=== PATIENT | male | born 1950 | race Caucasian/White ===

== ENCOUNTER 2019-05-12 11:15 | Outpatient (REF) | payer MEDICARE, MEDICAID, SELFPAY ==
[2019-05-12 21:57] LABS: Anion Gap 6.6 mmol/L (3-11); BUN 9 mg/dL (7-18); CO2 30.4 mmol/L (21.0-32.0); CREATININE 1.01 mg/dL (0.70-1.30); Calculated LDL 136 mg/dL; Chloride 104 mmol/L (98-107); Cholesterol 217 mg/dL (50-200); Glucose 95 mg/dL (70-100); HDL Cholesterol 47 mg/dL (40-60); Potassium 3.9 mmol/L (3.5-5.1); Sodium 141 mmol/L (136-145); Triglyceride 171 mg/dL (30-150)
[2019-05-12 22:12] LABS: Uric Acid 4.6 mg/dL (3.5-7.2)
== END 2019-05-12 11:35 ==
LOC: NCHCN 11:15
PROVIDERS: PCP Internal Medicine; Visit Provider Internal Medicine
DX: M10.9 Gout, unspecified (principal); E66.9 Obesity, unspecified; Z13.6 Encounter for screening for cardiovascular disorders
CPT/HCPCS: 80048; 80061; 84550

== ENCOUNTER 2020-05-07 09:40 | Outpatient (REF) | payer MEDICARE, MEDICAID, SELFPAY ==
[2020-05-07 21:43] LABS: Hemoglobin A1C 5.6 % (<5.7)
[2020-05-07 21:52] LABS: ALT 37 U/L (16-63); AST 29 U/L (15-37); Albumin 3.9 g/dL (3.4-5.0); Alkaline Phosphatase 77 U/L (46-116); Anion Gap 9.2 mmol/L (3-11); BUN 8 mg/dL (7-18); Bilirubin, Total 0.4 mg/dL (0.2-1.0); CO2 28.8 mmol/L (21.0-32.0); CREATININE 0.95 mg/dL (0.70-1.30); Calcium 9.2 mg/dL (8.5-10.1); Chloride 104 mmol/L (98-107); Glucose 103 mg/dL (74-106); Potassium 3.9 mmol/L (3.5-5.1); Sodium 142 mmol/L (136-145); Total Protein 6.9 g/dL (6.4-8.2); Uric Acid 4.8 mg/dL (3.5-7.2)
[2020-05-07 22:11] LABS: Calculated LDL 145 mg/dL (<100); Cholesterol 248 mg/dL (<200); HDL Cholesterol 74 mg/dL (40-60); Triglyceride 146 mg/dL (<150)
== END 2020-05-07 10:00 ==
LOC: NCHCN 09:40
PROVIDERS: PCP Internal Medicine; Visit Provider Internal Medicine
DX: E78.5 Hyperlipidemia, unspecified (principal); R03.0 Elevated blood-pressure reading, without diagnosis of hypertension; R73.03 Prediabetes; M10.9 Gout, unspecified
CPT/HCPCS: 80053; 80061; 83036; 84550

== ENCOUNTER 2020-08-19 13:44 | Outpatient (REF) | payer MEDICARE, MEDICAID, SELFPAY ==
[2020-08-19 19:41] LABS: HCT 43.1 % (40.0-50.0); HGB 14.7 g/dL (13.5-17.5); MCH 32.4 pg (27.0-33.0); MCHC 34.1 % (32.0-36.0); MCV 94.9 fL (80-95); MPV 10.4 fL (8.0-11.0); Platelet Count 204 10^3/uL (130-400); RBC 4.54 10^6/uL (4.36-5.78); RDW-SD 48.6 fL; WBC 12.23 10^3/uL (4.4-10.8)
[2020-08-19 20:02] LABS: Calculated LDL 59 mg/dL (<100); Cholesterol 172 mg/dL (<200); HDL Cholesterol 85 mg/dL (40-60); Triglyceride 144 mg/dL (<150)
== END 2020-08-19 14:04 ==
LOC: NCHCN 13:44
PROVIDERS: PCP Internal Medicine; Visit Provider Internal Medicine
DX: F10.20 Alcohol dependence, uncomplicated (principal); I10 Essential (primary) hypertension
CPT/HCPCS: 80061; 85027

== ENCOUNTER 2021-12-11 18:38 | Outpatient (REF) | payer MEDICARE, MEDICAID, SELFPAY ==
[2021-12-11 14:32] LABS: Abs Immature Grans 0.02 10^3/uL (0.0-0.06); Absolute Basophil Count 0.09 10^3/uL (0.0-0.2); Absolute Eosinophil Count 0.23 10^3/uL (0.0-0.7); Absolute Monocyte Count 0.71 10^3/uL (0.1-0.8); Absolute Neutrophil Count 3.93 10^3/uL (1.2-6.7); Eosinophils % 2.5; HCT 45.5 % (40.0-50.0); HGB 15.2 g/dL (13.5-17.5); Immature Grans % 0.2; Lymphocytes % 46.3; MCH 31.7 pg (27.0-33.0); MCHC 33.4 % (32.0-36.0); MCV 95 fL (80-95); MPV 9.7 fL (8.0-11.0); Monocytes % 7.7; Neutrophils % 42.3; Platelet Count 222 10^3/uL (130-400); RDW 14.4 % (11.8-14.1); RDW-SD 50.2 fL; WBC 9.28 10^3/uL (4.4-10.8)
[2021-12-11 14:45] LABS: ALT 55 U/L (16-63); AST 30 U/L (15-37); Alkaline Phosphatase 73 U/L (46-116); Anion Gap 9.9 mmol/L (3-11); BUN 10 mg/dL (7-18); Bilirubin, Total 0.6 mg/dL (0.2-1.0); CO2 28.1 mmol/L (21.0-32.0); Calcium 8.9 mg/dL (8.5-10.1); Calculated LDL 122 mg/dL (<100); Chloride 103 mmol/L (98-107); Cholesterol 243 mg/dL (<200); Glucose 134 mg/dL (74-106); HDL Cholesterol 63 mg/dL (40-60); Potassium 3.8 mmol/L (3.5-5.1); Sodium 141 mmol/L (136-145); Total Protein 7.2 g/dL (6.4-8.2); Triglyceride 294 mg/dL (<150)
[2021-12-11 14:50] LABS: Hemoglobin A1C 6.9 % (<5.7)
== END 2021-12-11 18:39 | disposition home or self-care (01) ==
LOC: NCHCN 18:38
PROVIDERS: PCP Internal Medicine; Visit Provider Internal Medicine
DX: E78.5 Hyperlipidemia, unspecified (principal); R73.03 Prediabetes; I10 Essential (primary) hypertension
CPT/HCPCS: 80053; 80061; 83036; 85025

== ENCOUNTER 2022-02-27 16:29 | Outpatient (REF) | payer MEDICARE, MEDICAID, SELFPAY ==
[2022-02-27 16:53] LABS: Hemoglobin A1C 5.7 % (<5.7)
[2022-02-27 16:57] LABS: Anion Gap 8.2 mmol/L (3-11); BUN 9 mg/dL (7-18); CO2 28.8 mmol/L (21.0-32.0); CREATININE 0.9 mg/dL (0.70-1.30); Calcium 9.2 mg/dL (8.5-10.1); Calculated LDL 69 mg/dL (<100); Chloride 104 mmol/L (98-107); Cholesterol 169 mg/dL (<200); Glucose 112 mg/dL (74-106); HDL Cholesterol 61 mg/dL (40-60); Potassium 4.1 mmol/L (3.5-5.1); Sodium 141 mmol/L (136-145); Triglyceride 199 mg/dL (<150)
== END 2022-02-27 16:30 | disposition home or self-care (01) ==
LOC: NCHCN 16:29
PROVIDERS: PCP Internal Medicine; Visit Provider Internal Medicine
DX: E11.9 Type 2 diabetes mellitus without complications (principal); I10 Essential (primary) hypertension; E78.5 Hyperlipidemia, unspecified
CPT/HCPCS: 80048; 80061; 83036

== ENCOUNTER 2022-03-05 17:05 | Outpatient (REF) | payer MEDICARE, MEDICAID, SELFPAY ==
[2022-03-05 15:04] LABS: COMMENT (LAB VIEW ONLY) 47.65 mg/dL; Microalb ug/mg Crea 4.6 ug/mg Cr
== END 2022-03-05 17:06 | disposition home or self-care (01) ==
LOC: NCHCN 17:05
PROVIDERS: PCP Internal Medicine; Visit Provider Nurse Practitioner Family
DX: E11.9 Type 2 diabetes mellitus without complications (principal); E78.5 Hyperlipidemia, unspecified; I10 Essential (primary) hypertension
CPT/HCPCS: 82043; 82570

== ENCOUNTER 2022-09-18 13:33 | Outpatient (REF) | payer MEDICARE, MEDICAID, SELFPAY ==
[2022-09-18 14:27] LABS: HCT 44.7 % (40.0-50.0); HGB 15.1 g/dL (13.5-17.5); MCH 31.9 pg (27.0-33.0); MCHC 33.8 % (32.0-36.0); MCV 94 fL (80-95); MPV 10.2 fL (8.0-11.0); Platelet Count 204 10^3/uL (130-400); RBC 4.74 10^6/uL (4.36-5.78); RDW 13.8 % (11.8-14.1); RDW-SD 47.7 fL; WBC 9.24 10^3/uL (4.4-10.8)
[2022-09-18 14:36] LABS: ALT 33 U/L (16-63); AST 26 U/L (15-37); Albumin 3.8 g/dL (3.4-5.0); Alkaline Phosphatase 72 U/L (46-116); BUN 11 mg/dL (7-18); Bilirubin, Total 0.4 mg/dL (0.2-1.0); CREATININE 1.1 mg/dL (0.70-1.30); Calcium 9.1 mg/dL (8.5-10.1); Chloride 104 mmol/L (98-107); Estimated GFR 71.32 (mL/min/1.73m2); Glucose 143 mg/dL (74-106); Potassium 3.8 mmol/L (3.5-5.1); Sodium 142 mmol/L (136-145); Total Protein 6.9 g/dL (6.4-8.2)
== END 2022-09-18 13:34 | disposition home or self-care (01) ==
LOC: NCHCN 13:33
PROVIDERS: PCP Internal Medicine; Visit Provider Internal Medicine
DX: K76.0 Fatty (change of) liver, not elsewhere classified (principal); I10 Essential (primary) hypertension; F10.20 Alcohol dependence, uncomplicated; Z00.00 Encounter for general adult medical examination without abnormal findings
CPT/HCPCS: 80053; 85027

== ENCOUNTER 2022-10-29 15:56 | Outpatient (REF) | payer MEDICARE, MEDICAID, SELFPAY ==
[2022-10-29 21:27] LABS: Anion Gap 7.3 mmol/L (3-11); BUN 22 mg/dL (7-18); CO2 26.7 mmol/L (21.0-32.0); CREATININE 1.2 mg/dL (0.70-1.30); Calcium 9.4 mg/dL (8.5-10.1); Chloride 104 mmol/L (98-107); Estimated GFR 64.25 (mL/min/1.73m2); Glucose 114 mg/dL (74-106); Potassium 4.2 mmol/L (3.5-5.1); Sodium 138 mmol/L (136-145)
== END 2022-10-29 15:57 | disposition home or self-care (01) ==
LOC: NCHCN 15:56
PROVIDERS: PCP Internal Medicine; Visit Provider Internal Medicine
DX: I50.9 Heart failure, unspecified (principal); E11.9 Type 2 diabetes mellitus without complications; I10 Essential (primary) hypertension
CPT/HCPCS: 80048

== ENCOUNTER 2022-12-07 14:58 | Outpatient (REF) | payer MEDICARE, MEDICAID, SELFPAY ==
[2022-12-07 14:52] LABS: Anion Gap 7.6 mmol/L (3-11); BUN 14 mg/dL (7-18); CO2 31.4 mmol/L (21.0-32.0); Calcium 9.6 mg/dL (8.5-10.1); Chloride 102 mmol/L (98-107); Estimated GFR 79.47 (mL/min/1.73m2); Glucose 94 mg/dL (74-106); Sodium 141 mmol/L (136-145)
== END 2022-12-07 14:59 | disposition home or self-care (01) ==
LOC: NCHCN 14:58
PROVIDERS: PCP Internal Medicine; Visit Provider Internal Medicine
DX: I50.9 Heart failure, unspecified (principal)
CPT/HCPCS: 80048

== ENCOUNTER 2023-03-22 14:04 | Outpatient (REF) | payer MEDICARE, MEDICAID, SELFPAY ==
[2023-03-22 15:38] LABS: COMMENT (LAB VIEW ONLY) 108.34 mg/dL; Microalb ug/mg Crea 15.5 ug/mg Cr
== END 2023-03-22 14:05 | disposition home or self-care (01) ==
LOC: NCHCN 14:04
PROVIDERS: PCP Internal Medicine; Visit Provider Internal Medicine
DX: E11.9 Type 2 diabetes mellitus without complications (principal)
CPT/HCPCS: 82043; 82570

== ENCOUNTER 2023-09-15 11:14 | Outpatient (REF) | payer MEDICARE, MEDICAID, SELFPAY ==
[2023-09-15 15:46] LABS: HCT 42.1 % (40.0-50.0); HGB 14.2 g/dL (13.5-17.5); MCHC 33.7 % (32.0-36.0); MCV 95 fL (80-95); MPV 9.3 fL (8.0-11.0); Platelet Count 245 10^3/uL (130-400); RBC 4.44 10^6/uL (4.36-5.78); RDW 13.3 % (11.8-14.1); RDW-SD 46.5 fL; WBC 9.35 10^3/uL (4.4-10.8)
[2023-09-15 15:57] LABS: ALT 39 U/L (16-63); AST 31 U/L (15-37); Albumin 3.6 g/dL (3.4-5.0); Alkaline Phosphatase 72 U/L (46-116); Anion Gap 8.7 mmol/L (3-11); BUN 12 mg/dL (7-18); Bilirubin, Total 0.3 mg/dL (0.2-1.0); CO2 27.3 mmol/L (21.0-32.0); CREATININE 0.8 mg/dL (0.70-1.30); Calcium 9.5 mg/dL (8.5-10.1); Calculated LDL 73 mg/dL (<100); Chloride 106 mmol/L (98-107); Cholesterol 182 mg/dL (<200); Estimated GFR 93.45 (mL/min/1.73m2); Glucose 88 mg/dL (74-106); HDL Cholesterol 61 mg/dL (40-60); Potassium 4.2 mmol/L (3.5-5.1); Sodium 142 mmol/L (136-145); Total Protein 7.1 g/dL (6.4-8.2); Triglyceride 241 mg/dL (<150)
[2023-09-15 16:09] LABS: Uric Acid 4.4 mg/dL (3.5-7.2)
[2023-09-15 16:24] LABS: Hemoglobin A1C 5.6 % (<5.7)
== END 2023-09-15 11:15 | disposition home or self-care (01) ==
LOC: NCHCN 11:14
PROVIDERS: PCP Internal Medicine; Visit Provider Internal Medicine
DX: I10 Essential (primary) hypertension (principal); E78.5 Hyperlipidemia, unspecified; E11.9 Type 2 diabetes mellitus without complications; M10.9 Gout, unspecified
CPT/HCPCS: 80053; 80061; 85027; 83036; 84550

== ENCOUNTER 2024-03-20 18:15 | Outpatient (REF) | payer MEDICARE, MEDICAID, SELFPAY ==
[2024-03-20 18:51] LABS: COMMENT (LAB VIEW ONLY) 245.68 mg/dL; Microalb ug/mg Crea 9.8 ug/mg Cr
== END 2024-03-20 18:16 | disposition home or self-care (01) ==
LOC: NCHCN 18:15
PROVIDERS: PCP Internal Medicine; Visit Provider Internal Medicine
DX: E11.9 Type 2 diabetes mellitus without complications (principal)
CPT/HCPCS: 82043; 82570

== ENCOUNTER 2024-09-13 10:28 | Outpatient (REF) | payer MEDICARE, MEDICAID, SELFPAY ==
--- OUTSIDE RECORDS SUMMARY | 2024-09-13 10:29 | XMS_ITS | Encounter Summary ---
Author Organization [facility] [place] [address] Care Team Providers Care Cost Recorder Name Role Phone Unavailable Primary Care Provider Unavailabl e Encounter Details Date Type Department Care Team (Late st Contact Info) Description 07/20/2024 Interpretation Only in [facility] [address] [place] [address] Daniel Panda MD [address] [place] [address] Social History Tobacco Use Types Packs/Day Years Used Date Smoking Tobacco: Never Assessed Sex and Gender Information Value Date Recorded Sex Assigned at Not on file Gender Identity Not on file Sexual Orientation Not on file documented as of this encounter Plan of Treatment Not on file documented as of this encounter Visit Diagnoses Not on filedocumented in this encounter
--- OUTSIDE RECORDS SUMMARY | 2024-09-13 10:29 | XMS_ITS | Encounter Summary ---
Author Organization [facility] [place] [address] Care Team Providers Care Gaming Pit Boss Name Role Phone Unavailable Primary Care Provider Unavailabl e Encounter Details Date Type Department Care Team (Late st Contact Info) Description 06/12/2024 Interpretation Only [facility] in [facility] [address] [place] [address] Daniel Panda MD [address] [place] [address] Social History Tobacco Use Types Packs/Day Years Used Date Smoking Tobacco: Never Assessed Sex and Gender Information Value Date Recorded Sex Assigned at Not on file Gender Identity Not on file Sexual Orientation Not on file documented as of this encounter Plan of Treatment Not on file documented as of this encounter Procedures Procedure Name Priority Date/Time Associated Diagnosis Comments XR SHOULDER RIGHT Routine 06/12/2024 11: 57 AM EDT documented in this encounter Results * XR Shoulder Right (Generic) (06/12/2024 11:57 AM EDT) PT CLASS O RAD ADMITDTTM [id number] RAD PT RAD INFO [id number]^SHELBI^J OHN^C RAD EXAM DESC XRSHDR^XR SHOULDER 2V OR MORE RT^RIS RAD WORKSTATION ID [id number] RAD Anatomical Region Laterality Modality Shoulder Right Radiographic Elsie ging Impressions 06/12/2024 2:40 PM EDT 1. ??No acute osseous abnormality. 2. ??Moderate bilateral glenohumeral osteoarthritis, right greater than left. 3. ??Superior subluxation of the bilateral humeri, right greater left, suggesting underlying chronic rotator cuff tear injury. Thank you for letting us participate in the care of this patient. ??If you are a health care provider and have any questions regarding this report, please contact the number below. ??For patients who have questions please contact the health hospice care sales consultant that requested your imaging first. ? Narrative 06/12/2024 2:40 PM EDT EXAMINATION: * ??XR SHOULDER 2V OR MORE LT * ??XR SHOULDER 2V OR MORE RT CLINICAL HISTORY: ??Reason for Extrem: ??Pain ??Add'l Info: TECHNIQUE: 2 views of the bilateral shoulders were obtained. COMPARISON: There is no similar prior examination provided for comparison. FINDINGS: There is no fracture. ??There is no dislocation. There is moderate bilateral glenohumeral and acromioclavicular joint space narrowing associated with subchondral sclerosis and juxta-articular osteophyte formation. ??There is superior subluxation of the humerus as compared to the glenoid, right greater than left. ??The glenohumeral interval on the right is 6 mm and is 8 to 9 mm on the left. Visualized aspects of the bilateral lungs are clear. The visualized soft tissue structures are otherwise within normal limits. ??There is no radiopaque foreign body. Procedure Note Fab Mcmahon DO - 06/12/2024 EXAMINATION: * XR SHOULDER 2V OR MORE LT * XR SHOULDER 2V OR MORE RT CLINICAL HISTORY: Reason for Extrem: Pain Add'l Info: TECHNIQUE: 2 views of the bilateral shoulders were obtained. COMPARISON: There is no similar prior examination provided forcomparison. FINDINGS: There is no fracture. There is no dislocation. There is moderate bilateral glenohumeral and acromioclavicular jointspace narrowing associated with subchondral sclerosis and juxta-articularosteophyte formation. There is superior subluxation of the humerus as compared tothe glenoid, right greater than left. The glenohumeral interval on the rightis 6 mm and is 8 to 9 mm on the left. Visualized aspects of the bilateral lungs are clear. The visualized soft tissue structures are otherwise within normal limits.There is no radiopaque foreign body. IMPRESSION 1. No acute osseous abnormality. 2. Moderate bilateral glenohumeral osteoarthritis, right greater thanleft. 3. Superior subluxation of the bilateral humeri, right greater left,suggesting underlying chronic rotator cuff tear injury. Thank you for letting us participate in the care of this patient. If youare a health care provider and have any questions regarding this report,please contact the number below. For patients who have questions please contactthe health hospice care sales consultant that requested your imaging first. Daniel Panda MD IMG DX ORDERABLES documented in this encounter Visit Diagnoses Not on filedocumented in this encounter
--- OUTSIDE RECORDS SUMMARY | 2024-09-13 10:29 | XMS_ITS | Encounter Summary ---
[facility] [place] [address] Care Team Providers Care Pressure Test Operator Name Role Phone Unavailable Primary Care Provider Unavailabl e Encounter Details Date Type Department Care Team (Late st Contact Info) Description 06/12/2024 Interpretation Only [facility] in [facility] [address] [place] [address] Daniel Panda MD [address] [place] [address] Social History Tobacco Use Types [...]
--- OUTSIDE RECORDS SUMMARY | 2024-09-13 10:29 | XMS_ITS | Clinical Summary ---
Author Organization [facility] [place] [address] Care Team Providers Care Lockstitch Machine Operator Name Role Phone Unavailable Primary Care Provider Unavailabl e Encounters Date Type Department Care Team Description 07/20/2024 Interpretation Only [facility] in [address] [address] Daniel Panda MD from Last 3 Months Social History Tobacco Use Types Packs/Day Years Used Date Smoking Tobacco: Never Assessed Sex and Gender Information Value Date Recorded Sex Assigned at Not on file Gender Identity Not on file Sexual Orientation Not on file Plan of Treatment Health Maintenance Due Date Last Done Comments CT Colonography 1950 Colonoscopy 1950 Colorectal Cancer Screening 1950 FIT DNA 1950 FIT 1950 Sigmoidoscopy (10 year) with FIT yearly 1950 Sigmoidoscopy 1950 Hepatitis C Screening 11/07/1967 Lipid Screening 11/07/1967 Tetanus/Diphtheria/Pertussis Vaccines (1 - Tdap) 11/06 Pneumoccocal Vaccine: 50+ (1 of 1 - PCV) 11/07/1999 Zoster vaccine (1 of 2) 11/07/1999 Advance Directive 2004 Covid-19 Vaccine (1 - season) 2024 Influenza (Flu) vaccine (1 o f 1 - Influenza standard series) 04/16/2024
--- OUTSIDE RECORDS SUMMARY | 2024-09-13 10:29 | XMS_ITS | Encounter Summary ---
Author Organization [facility] [place] [address] Care Team Providers Care Brand Attendant Name Role Phone Unavailable Primary Care Provider Unavailabl e Encounter Details Date Type Department Care Team (Late st Contact Info) Description 06/12/2024 Interpretation Only [facility] in [facility] [address] [place] [address] Daniel Panda MD [address] [place] [address] Social History Tobacco Use Types [...] Priority Date/Time Associated Diagnosis Comments XR SHOULDER LEFT Routine 06/12/2024 11:5 7 AM EDT documented in this encounter Results * XR Shoulder Left (Generic) (06/12/2024 11:57 AM EDT) PT CLASS O RAD ADMITDTTM [id number] RAD PT RAD INFO [id number]^SHELBI^J OHN^C RAD EXAM DESC XRSHDL^XR SHOULDER 2V OR MORE LT^RIS RAD WORKSTATION ID [id number] RAD Anatomical Region Laterality Modality Shoulder Left Radiographic Elsie ging Impressions 06/12/2024 2:40 PM [...] who have questions please contact the health healthcare account manager that requested your imaging first. ? Electronically signed by: Fab Mcmahon DO [facility] ([phone]), at 06/12/2024 2:40 PM Narrative 06/12/2024 2:40 PM EDT EXAMINATION: * [...] patients who have questions please contactthe health healthcare account manager that requested your imaging first. Electronically signed by: Fab Mcmahon DO, [facility]([phone]), at 06/12/2024 2:40 PM Daniel Panda MD IMG DX ORDERABLES documented in this encounter Visit Diagnoses Not on filedocumented in this encounter
--- OUTSIDE RECORDS SUMMARY | 2024-09-13 10:30 | XMS_ITS ---
Author Organization Unknown Address [address] [place] [address] [phone] Phone Care Team Providers Care Rail Walker Name Role Phone LANAYRIS WHITNEY Sylvia Attending Unavailable Results XR KNEE LT MIN 4V* - Complet ed: 09/22/2021 16:02 LOINC: RIGHT AND LEFT KNEES - 4 VIE WS OF EACH KNEE: Comparison is made with 05/18/07. LEFT KNEE: There is moderate narrowing in the medial femoral tibial joint. Mild periarticular spurring is seen in the lateral femoral tibial joint and the patellofemoral joint. The bones are intact. Atherosclerosis is present. IMPRESSION:Mild degenerative changes of the left knee. RIGHT KNEE: Medullary calcifications are seen in the distal femoral metaphysis. These are unchanged. This may represent findings of an enchondroma or bone infarct. There is narrowing of the medial femoral tibial joint space. Mild spurring is seen at the posterior patella. The bones are intact. Atherosclerosis is present. IMPRESSION:Mild degenerative changes of the right knee. Dictated by: ISAIAH CHAUHAN MD Transcribed by: JOSE DE JESUS 09/23/2109:34 D Wednesday, September 22, 2021 3:03:30 PM/#[id number] Electronically Reviewed and Signed By: ISAIAH CHAUHAN MD 09/24/21 16:13 Copy for: [facility] INFORMATION MGMT XR KNEE RT MIN 4V* - Complet ed: 09/22/2021 16:02 LOINC: RIGHT AND LEFT KNEES - 4 VIE WS OF EACH KNEE: Comparison is made with 05/18/07. LEFT KNEE: There is moderate narrowing in the medial femoral tibial joint. Mild periarticular spurring is seen in the lateral femoral tibial joint and the patellofemoral joint. The bones are intact. Atherosclerosis is present. IMPRESSION:Mild degenerative changes of the left knee. RIGHT KNEE: Medullary calcifications are seen in the distal femoral metaphysis. These are unchanged. This may represent findings of an enchondroma or bone infarct. There is narrowing of the medial femoral tibial joint space. Mild spurring is seen at the posterior patella. The bones are intact. Atherosclerosis is present. IMPRESSION:Mild degenerative changes of the right knee. Dictated by: CARINA CHAUHAN MD Transcribed by: JOSE DE JESUS 09/23/21/09:34 D Wednesday, September 22, 2021 3:03:30 PM/#[id number] Electronically Reviewed and Signed By: ISAIAH CHAUHAN MD 09/24/21 16:13 Copy for: [facility] INFORMATION MGMT Social History Type Status Start Date End Date Code Code Syst em Smoking History Former smoker 7343619 SNOMED CT Sex Male Assessment You had the following problems:PAIN IN RIGHT SHOULDERDIASTOLIC DYSFUNCTIONISCHEMIC CARDIOMYOPATHYHISTORY OF AORTIC VALVE STENOSISPAIN IN RIGHT KNEEHYDROCELEFATTY LIVERALCOHOL DEPENDENCEOBESITYDIABETES 2HYPERLIPIDEMIAHTNPERIPHERAL NEUROPATHYDEPRESSIONDIVERTICULOSIS OF COLON WITHOUT DIVERTICULITIS Hospital Discharge Instructions Should you have any questions prior to discharge, please contact a member of your healthcare team. If you have left the hospital and have any questions, please contact your primary care physician. Reason For Referral No Data Found Problems Problem Start Date Resolved Date Status Code Code System PAIN IN RIGHT SHOULDER active 2308636 [id number] SNOMED-CT DIASTOLIC DYSFUNCTION active 0065873 SNOMED-CT ISCHEMIC CARDIOMYOPATHY active 792576 004 SNOMED-CT HISTORY OF AORTIC VALVE STENOSIS active 7375672278501361 SNOMED-CT PAIN IN RIGHT KNEE active 82103301085 4100 SNOMED-CT HYDROCELE active 43926233 SNOMED-CT FATTY LIVER active 835050419 SNOMED-C T ALCOHOL DEPENDENCE active 41169605 S NOMED-CT OBESITY active 382843538 SNOMED-CT DIABETES 2 active 36897905 SNOMED-CT HYPERLIPIDEMIA active 52372352 SNOME D-CT HTN active 82610537 SNOMED-CT PERIPHERAL NEUROPATHY active 17294469 6 SNOMED-CT DEPRESSION active 39174058 SNOMED-CT DIVERTICULOSIS OF COLON WITHOUT DIVERTICULITIS active 876086873 SNOME D-CT Allergies and Adverse Reactions Allergy Substance Reaction Severity Start Date Concern Status Co de Code System No Known Allergies Moderate Active 412544378 SN OMED-CT Plan of Treatment MRI UPPER EXT JOINT W/O CONTRAST 2023 NM MPI STR/RST 12/16/2022 NM MPI STR/RST 11/25/2022 NM MPI STR/RST 10/15/2022 US TESTICULAR 06/03/2022 US ABDOMEN LIMITED 1 ORGAN 01/01/2022 X-RAY 09/22/2021 X-RAY 06/05/2021 Encounters Encounter Diagnosis Start Date Code Code Sys tem 09/22/2021 [id number] SNOMED-CT Personal Care Team Section Performer Name Performer Role Active Date Inactive Da te
--- OUTSIDE RECORDS SUMMARY | 2024-09-13 10:31 | XMS_ITS ---
Author Organization Unknown Address [address] [place] [address] [phone] Phone Care Team Providers Care Circular Knitter Name Role Phone FERMIN Ward Attending Unavailable Results US TESTICULAR - Completed: 1 13:41 LOINC: [facility] [place], [place] [address] PACS DYNAMITE PACKING MACHINE OPERATOR REPORT Patient Name: VÍCTOR LANDERS MRN: Sex: : Age: [id number] M [id number] Account: Accession: Admit: StayType: [id number] 06/03/2022 O/P Ordered: Order ID: Entered Order: Ordering Provider: 06/03/2022 12:57 [id number] NLS DEVONTE CHRISTENSEN Completed: Tech Completed: Resulted DTTM: 06/03/2022 13:41 KT 06/03/2022 13:56 Study Description: US TESTICULAR Study Reason: RT TESTICULAR PAIN COMPARISON: None. FINDINGS: Right testicle: 5.2 x 2.1 x 3.6 cm Echogenicity: Normal. Contour: Smooth. Mass: None seen. Microlithiasis: None. Hydrocele: None. Variocele: None. Hernia: No peristalsing bowel loop identified. Epididymis: There is a 0.4 cm epididymal head cyst. Left testicle: 4.1 x 2.3 x 3.0 cm Echogenicity: Normal. Contour: Smooth. Mass: None seen. Microlithiasis: None. Hydrocele: There is a very large hydrocele. Variocele: None. Hernia: No peristalsing bowel loop identified. Epididymis: Normal. DOPPLER: Color: Symmetric and uniform, no hyperemia. There is mild scrotal skin thickening. IMPRESSION: #1. No evidence of an intratesticular mass. 2. Very large left hydrocele. Report Digitally Signed by Fred Orellana on 06/03/2022 01:56 PM EDT Social History Type Status Start Date End Date Code Code Syst em Smoking History Former smoker 9099201 SNOMED CT Sex Male Assessment You had [...] Code System PAIN IN RIGHT SHOULDER active 6603048 6613700107 SNOMED-CT DIASTOLIC DYSFUNCTION active 9787033 SNOMED-CT ISCHEMIC CARDIOMYOPATHY active 038857 004 SNOMED-CT HISTORY OF AORTIC VALVE STENOSIS active 7994246278498452 SNOMED-CT PAIN IN RIGHT KNEE active 94893874683 4100 SNOMED-CT HYDROCELE active 87515163 SNOMED-CT FATTY LIVER active 265255182 SNOMED-C T ALCOHOL DEPENDENCE active 11851329 S NOMED-CT OBESITY active 045653644 SNOMED-CT DIABETES 2 active 97858553 SNOMED-CT HYPERLIPIDEMIA active 33822307 SNOME D-CT HTN active 97291049 SNOMED-CT PERIPHERAL NEUROPATHY active 49558171 6 SNOMED-CT DEPRESSION active 74614990 SNOMED-CT DIVERTICULOSIS OF COLON WITHOUT DIVERTICULITIS active 109232813 SNOME D-CT Allergies and Adverse Reactions Allergy Substance Reaction Severity Start Date Concern Status Co de Code System No Known Allergies Moderate Active 057336709 SN OMED-CT Plan of Treatment MRI UPPER EXT JOINT W/O CONTRAST 2023 NM MPI STR/RST 12/16/2022 NM MPI STR/RST 11/25/2022 NM MPI STR/RST 10/15/2022 US TESTICULAR 06/03/2022 US ABDOMEN LIMITED 1 ORGAN 01/01/2022 X-RAY 09/22/2021 X-RAY 06/05/2021 Encounters Encounter Diagnosis Start Date Code Code Sys tem Right testicular pain 06/03/2022 SNOMED -CT Personal Care Team Section Performer Name Performer Role Active Date Inactive Da te
--- OUTSIDE RECORDS SUMMARY | 2024-09-13 10:31 | XMS_ITS ---
Author Organization Unknown Address [address] [place] [address] [phone] Phone Care Team Providers Care Assembly Cleaner Name Role Phone LEWIS JOSE DE JESUS Magdaleno Attending Unavailable FERMIN Ward Primary Unavailable Social History Type Status Start Date End Date Code Code Syst em Smoking History Former smoker 7428979 SNOMED CT Sex Male Assessment You had [...] Code System PAIN IN RIGHT SHOULDER active 6180029 9117396907 SNOMED-CT DIASTOLIC DYSFUNCTION active 0623079 SNOMED-CT ISCHEMIC CARDIOMYOPATHY active 341930 004 SNOMED-CT HISTORY OF AORTIC VALVE STENOSIS active 2040238092199490 SNOMED-CT PAIN IN RIGHT KNEE active 83389772953 4100 SNOMED-CT HYDROCELE active 75158841 SNOMED-CT FATTY LIVER active 801237706 SNOMED-C T ALCOHOL DEPENDENCE active 90526435 S NOMED-CT OBESITY active 129099869 SNOMED-CT DIABETES 2 active 22060798 SNOMED-CT HYPERLIPIDEMIA active 15987608 SNOME D-CT HTN active 50094803 SNOMED-CT PERIPHERAL NEUROPATHY active 23563577 6 SNOMED-CT DEPRESSION active 94889781 SNOMED-CT DIVERTICULOSIS OF COLON WITHOUT DIVERTICULITIS active 159538149 SNOME D-CT Allergies and Adverse Reactions Allergy Substance Reaction Severity Start Date Concern Status Co de Code System No Known Allergies Moderate Active 583401109 SN OMED-CT Plan of Treatment MRI UPPER EXT JOINT W/O CONTRAST 2023 NM MPI STR/RST 12/16/2022 NM MPI STR/RST 11/25/2022 NM MPI STR/RST 10/15/2022 US TESTICULAR 06/03/2022 US ABDOMEN LIMITED 1 ORGAN 01/01/2022 X-RAY 09/22/2021 X-RAY 06/05/2021 Encounters Encounter Diagnosis Start Date Code Code Sys tem Cardiomyopathy 09/22/2022 87157020 SNOMED-CT Personal Care Team Section Performer Name Performer Role Active Date Inactive Da te
--- OUTSIDE RECORDS SUMMARY | 2024-09-13 10:31 | XMS_ITS ---
Author Organization Unknown Address [address] [place] [address] [phone] Phone Care Team Providers Care Bottom Loader Name Role Phone FERMIN Ward Attending Unavailable Results US ABD LIMITED ONE ORGAN - C ompleted: 01/01/2022 09:09 LOINC: RIGHT UPPER QUADRANT ULTRASO UND There is no ascites. The liver is hyperechoic indicating steatosis. No discrete ominous focal hepatic lesions identified. No dilatation of intrahepatic ducts. There is 1 small 4 mm mobile gallstone noted. The gallbladder is not overly distended and gallbladder wall is not edematous. Common hepatic duct is not dilated, measuring 3 mm at the level of the ryan hepatis. Pancreas appears unremarkable. There are 2 adjacent cysts in the superior pole of the right kidney, these measure 2.8 x 3 cm and 2.8 x 3.3 cm. No evidence of aortic aneurysm. IVC patent. IMPRESSION: 1. Cholelithiasis. There is a single small 5 mm mobile gallstone. No evidence of acute cholecystitis nor dilation of the biliary tree. 2. Hepatic steatosis. Correlation with appropriate hepatic blood work recommended. 3. Two adjacent benign 3 cm cysts in superior pole of the right kidney noted. No other focal right renal findings. Dictated by: ILENE BOLAND MD Transcribed by: [facility] 01/01/22/15:29 D December 9:33:29 AM [id number] Electronically Reviewed and Signed By: GOSIA BOLAND MD 01/01/22 19:18 Copy for: FERMIN Ward via fax Copy for: 185 [facility] INFORMATION MGMT Social History Type Status Start Date End Date Code Code Syst em Smoking History Former smoker 3819847 SNOMED CT Sex Male Assessment You had [...] Code System PAIN IN RIGHT SHOULDER active 7642820 6593276850 SNOMED-CT DIASTOLIC DYSFUNCTION active 9776452 SNOMED-CT ISCHEMIC CARDIOMYOPATHY active 204193 004 SNOMED-CT HISTORY OF AORTIC VALVE STENOSIS active 9117771579292825 SNOMED-CT PAIN IN RIGHT KNEE active 09218721649 4100 SNOMED-CT HYDROCELE active 82013462 SNOMED-CT FATTY LIVER active 070717011 SNOMED-C T ALCOHOL DEPENDENCE active 79546289 S NOMED-CT OBESITY active 735216800 SNOMED-CT DIABETES 2 active 30451452 SNOMED-CT HYPERLIPIDEMIA active 04873411 SNOME D-CT HTN active 33017759 SNOMED-CT PERIPHERAL NEUROPATHY active 04971362 6 SNOMED-CT DEPRESSION active 54502981 SNOMED-CT DIVERTICULOSIS OF COLON WITHOUT DIVERTICULITIS active 800185187 SNOME D-CT Allergies and Adverse Reactions Allergy Substance Reaction Severity Start Date Concern Status Co de Code System No Known Allergies Moderate Active 448174758 SN OMED-CT Plan of Treatment MRI UPPER EXT JOINT W/O CONTRAST 2023 NM MPI STR/RST 12/16/2022 NM MPI STR/RST 11/25/2022 NM MPI STR/RST 10/15/2022 US TESTICULAR 06/03/2022 US ABDOMEN LIMITED 1 ORGAN 01/01/2022 X-RAY 09/22/2021 X-RAY 06/05/2021 Encounters Encounter Diagnosis Start Date Code Code Sys tem Calculus of gallbladder with out cholecystitis without obstruction 01/01/2022 SNOMED-CT Personal Care Team Section Performer Name Performer Role Active Date Inactive Da te
--- OUTSIDE RECORDS SUMMARY | 2024-09-13 10:32 | XMS_ITS ---
Author Organization Unknown Address [address] [place] [address] [phone] Phone Care Team Providers Care Pulmonary Physician Name Role Phone JENA POTTS Attending Unavailable FERMIN Ward Primary Unavailable Social History Type Status Start Date End Date Code Code Syst em Smoking History Former smoker 2153175 SNOMED CT Sex Male Assessment You had [...] Code System PAIN IN RIGHT SHOULDER active 8599967 2343702796 SNOMED-CT DIASTOLIC DYSFUNCTION active 5108882 SNOMED-CT ISCHEMIC CARDIOMYOPATHY active 415085 004 SNOMED-CT HISTORY OF AORTIC VALVE STENOSIS active 9411296525410954 SNOMED-CT PAIN IN RIGHT KNEE active 39392739126 4100 SNOMED-CT HYDROCELE active 61053981 SNOMED-CT FATTY LIVER active 867915504 SNOMED-C T ALCOHOL DEPENDENCE active 86126179 S NOMED-CT OBESITY active 342623293 SNOMED-CT DIABETES 2 active 75247577 SNOMED-CT HYPERLIPIDEMIA active 64394959 SNOME D-CT HTN active 48911187 SNOMED-CT PERIPHERAL NEUROPATHY active 90553949 6 SNOMED-CT DEPRESSION active 71467770 SNOMED-CT DIVERTICULOSIS OF COLON WITHOUT DIVERTICULITIS active 230159636 SNOME D-CT Allergies and Adverse Reactions Allergy Substance Reaction Severity Start Date Concern Status Co de Code System No Known Allergies Moderate Active 395336208 SN OMED-CT Plan of Treatment MRI UPPER EXT JOINT W/O CONTRAST 2023 NM MPI STR/RST 12/16/2022 NM MPI STR/RST 11/25/2022 NM MPI STR/RST 10/15/2022 US TESTICULAR 06/03/2022 US ABDOMEN LIMITED 1 ORGAN 01/01/2022 X-RAY 09/22/2021 X-RAY 06/05/2021 Encounters Encounter Diagnosis Start Date Code Code Sys tem Canceled operative procedure 10/15/2022 95064151 SNOMED-CT Personal Care Team Section Performer Name Performer Role Active Date Inactive Da te
--- OUTSIDE RECORDS SUMMARY | 2024-09-13 10:32 | XMS_ITS ---
Author Organization Unknown Address [address] [place] [address] [phone] Phone Care Team Providers Care Dope Heater Name Role Phone LEWIS JOSE DE JESUS Magdaleno Attending Unavailable FERMIN Ward Primary Unavailable Social History Type Status Start Date End Date Code Code Syst em Smoking History Former smoker 8406329 SNOMED CT Sex Male Assessment You had [...] Code System PAIN IN RIGHT SHOULDER active 5935228 2615748696 SNOMED-CT DIASTOLIC DYSFUNCTION active 5669186 SNOMED-CT ISCHEMIC CARDIOMYOPATHY active 042864 004 SNOMED-CT HISTORY OF AORTIC VALVE STENOSIS active 5606373435917594 SNOMED-CT PAIN IN RIGHT KNEE active 73507303277 4100 SNOMED-CT HYDROCELE active 62514519 SNOMED-CT FATTY LIVER active 547064263 SNOMED-C T ALCOHOL DEPENDENCE active 56142137 S NOMED-CT OBESITY active 406250163 SNOMED-CT DIABETES 2 active 17388714 SNOMED-CT HYPERLIPIDEMIA active 14317860 SNOME D-CT HTN active 50486776 SNOMED-CT PERIPHERAL NEUROPATHY active 26901412 6 SNOMED-CT DEPRESSION active 94302258 SNOMED-CT DIVERTICULOSIS OF COLON WITHOUT DIVERTICULITIS active 432495656 SNOME D-CT Allergies and Adverse Reactions Allergy Substance Reaction Severity Start Date Concern Status Co de Code System No Known Allergies Moderate Active 252066887 SN OMED-CT Plan of Treatment MRI UPPER EXT JOINT W/O CONTRAST 2023 NM MPI STR/RST 12/16/2022 NM MPI STR/RST 11/25/2022 NM MPI STR/RST 10/15/2022 US TESTICULAR 06/03/2022 US ABDOMEN LIMITED 1 ORGAN 01/01/2022 X-RAY 09/22/2021 X-RAY 06/05/2021 Encounters Encounter Diagnosis Start Date Code Code Sys tem Cardiac murmur, unspecified 09/07/2022 SNOMED-CT Personal Care Team Section Performer Name Performer Role Active Date Inactive Da te
--- OUTSIDE RECORDS SUMMARY | 2024-09-13 10:32 | XMS_ITS ---
Author Organization Unknown Address [address] [place] [address] [phone] Phone Care Team Providers Care Pattern Gater Name Role Phone LEWIS JOSE DE JESUS Magdaleno Attending Unavailable FERMIN Ward Primary Unavailable Social History Type Status Start Date End Date Code Code Syst em Smoking History Former smoker 9223981 SNOMED CT Sex Male Assessment You had [...] Code System PAIN IN RIGHT SHOULDER active 2133680 6903365016 SNOMED-CT DIASTOLIC DYSFUNCTION active 8781467 SNOMED-CT ISCHEMIC CARDIOMYOPATHY active 633785 004 SNOMED-CT HISTORY OF AORTIC VALVE STENOSIS active 4325566152513485 SNOMED-CT PAIN IN RIGHT KNEE active 59207008804 4100 SNOMED-CT HYDROCELE active 62994359 SNOMED-CT FATTY LIVER active 093741111 SNOMED-C T ALCOHOL DEPENDENCE active 61343997 S NOMED-CT OBESITY active 010254923 SNOMED-CT DIABETES 2 active 37159442 SNOMED-CT HYPERLIPIDEMIA active 24039280 SNOME D-CT HTN active 69399624 SNOMED-CT PERIPHERAL NEUROPATHY active 78349197 6 SNOMED-CT DEPRESSION active 23112418 SNOMED-CT DIVERTICULOSIS OF COLON WITHOUT DIVERTICULITIS active 425023688 SNOME D-CT Allergies and Adverse Reactions Allergy Substance Reaction Severity Start Date Concern Status Co de Code System No Known Allergies Moderate Active 137066344 SN OMED-CT Plan of Treatment MRI UPPER EXT JOINT W/O CONTRAST 2023 NM MPI STR/RST 12/16/2022 NM MPI STR/RST 11/25/2022 NM MPI STR/RST 10/15/2022 US TESTICULAR 06/03/2022 US ABDOMEN LIMITED 1 ORGAN 01/01/2022 X-RAY 09/22/2021 X-RAY 06/05/2021 Encounters Encounter Diagnosis Start Date Code Code Sys tem Canceled operative procedure 10/15/2022 81635224 SNOMED-CT Personal Care Team Section Performer Name Performer Role Active Date Inactive Da te
--- OUTSIDE RECORDS SUMMARY | 2024-09-13 10:32 | XMS_ITS ---
Author Organization Unknown Address [address] [place] [address] [phone] Phone Care Team Providers Care Manager News Name Role Phone LEWIS JOSE DE JESUS Magdaleno Attending Unavailable FERMIN Ward Primary Unavailable Social History Type Status Start Date End Date Code Code Syst em Smoking History Former smoker 4769595 SNOMED CT Sex Male Assessment You had [...] Code System PAIN IN RIGHT SHOULDER active 7177082 5330341791 SNOMED-CT DIASTOLIC DYSFUNCTION active 7299536 SNOMED-CT ISCHEMIC CARDIOMYOPATHY active 160087 004 SNOMED-CT HISTORY OF AORTIC VALVE STENOSIS active 8383385803729567 SNOMED-CT PAIN IN RIGHT KNEE active 09965849206 4100 SNOMED-CT HYDROCELE active 51776380 SNOMED-CT FATTY LIVER active 028620440 SNOMED-C T ALCOHOL DEPENDENCE active 31389448 S NOMED-CT OBESITY active 328213704 SNOMED-CT DIABETES 2 active 93965818 SNOMED-CT HYPERLIPIDEMIA active 94602678 SNOME D-CT HTN active 37823610 SNOMED-CT PERIPHERAL NEUROPATHY active 51897914 6 SNOMED-CT DEPRESSION active 37786526 SNOMED-CT DIVERTICULOSIS OF COLON WITHOUT DIVERTICULITIS active 261859445 SNOME D-CT Allergies and Adverse Reactions Allergy Substance Reaction Severity Start Date Concern Status Co de Code System No Known Allergies Moderate Active 717843491 SN OMED-CT Plan of Treatment MRI UPPER EXT JOINT W/O CONTRAST 2023 NM MPI STR/RST 12/16/2022 NM MPI STR/RST 11/25/2022 NM MPI STR/RST 10/15/2022 US TESTICULAR 06/03/2022 US ABDOMEN LIMITED 1 ORGAN 01/01/2022 X-RAY 09/22/2021 X-RAY 06/05/2021 Encounters Encounter Diagnosis Start Date Code Code Sys tem Supraventricular tachycardia 10/20/2022 1236404 SNOMED-CT Personal Care Team Section Performer Name Performer Role Active Date Inactive Da te
--- OUTSIDE RECORDS SUMMARY | 2024-09-13 10:33 | XMS_ITS ---
Author Organization Unknown Address [address] [place] [address] [phone] Phone Care Team Providers Care Volunteer Services Manager Name Role Phone LEWIS JOSE DE JESUS Magdaleno Attending Unavailable FERMIN Ward Primary Unavailable Social History Type Status Start Date End Date Code Code Syst em Smoking History Former smoker 3089470 SNOMED CT Sex Male Assessment You had [...] Code System PAIN IN RIGHT SHOULDER active 2860510 6436804024 SNOMED-CT DIASTOLIC DYSFUNCTION active 3196846 SNOMED-CT ISCHEMIC CARDIOMYOPATHY active 674550 004 SNOMED-CT HISTORY OF AORTIC VALVE STENOSIS active 3771539392124372 SNOMED-CT PAIN IN RIGHT KNEE active 31526936057 4100 SNOMED-CT HYDROCELE active 41315606 SNOMED-CT FATTY LIVER active 903276312 SNOMED-C T ALCOHOL DEPENDENCE active 30390423 S NOMED-CT OBESITY active 901361664 SNOMED-CT DIABETES 2 active 88757086 SNOMED-CT HYPERLIPIDEMIA active 46284794 SNOME D-CT HTN active 71512944 SNOMED-CT PERIPHERAL NEUROPATHY active 35338082 6 SNOMED-CT DEPRESSION active 09043920 SNOMED-CT DIVERTICULOSIS OF COLON WITHOUT DIVERTICULITIS active 454533853 SNOME D-CT Allergies and Adverse Reactions Allergy Substance Reaction Severity Start Date Concern Status Co de Code System No Known Allergies Moderate Active 259711850 SN OMED-CT Plan of Treatment MRI UPPER EXT JOINT W/O CONTRAST 2023 NM MPI STR/RST 12/16/2022 NM MPI STR/RST 11/25/2022 NM MPI STR/RST 10/15/2022 US TESTICULAR 06/03/2022 US ABDOMEN LIMITED 1 ORGAN 01/01/2022 X-RAY 09/22/2021 X-RAY 06/05/2021 Encounters Encounter Diagnosis Start Date Code Code Sys tem Aortic stenosis, non-rheumatic 12/21/2022 674905927 SNOMED-CT Personal Care Team Section Performer Name Performer Role Active Date Inactive Da te
--- OUTSIDE RECORDS SUMMARY | 2024-09-13 10:33 | XMS_ITS ---
Author Organization Unknown Address [address] [place] [address] [phone] Phone Care Team Providers Care Statistical Programmer Analyst Name Role Phone MANJULA MURRAY Attending Unavailable FERMIN Ward Primary Unavailable Results XR ORBITS COMPLETE - Complet ed: 11/12/2022 14:34 LOINC: [facility] [place], [place] [address] PACS MARKETING INTELLIGENCE ANALYST REPORT Patient Name: VÍCTOR LANDERS MRN: Sex: : Age: [id number] M 1950 72 Account: Accession: Admit: StayType: [id number] 11/12/2022 O/P Ordered: Order ID: Submitted: Ordering Provider: 11/12/2022 14:17 [id number] KT TERRI FAIR Completed: Technologist: Resulted: 11/12/2022 14:34 TNC 11/12/2022 14:36 Study Description: XR ORBITS COMPLETE Study Reason: PRIOR TO MRI 2 images were obtained. COMPARISON: None. FINDINGS: No radiopaque foreign bodies are seen in the orbits. IMPRESSION: No radiopaque foreign bodies are seen in the orbits. Report Digitally Signed by Fred Orellana on 11/12/2022 02:36 PM EDT 11/12/[email or web address].[email or web address].to FERMIN DESTIN via fax Social History Type Status Start Date End Date Code Code Syst em Smoking History Former smoker 1678134 SNOMED CT Sex Male Assessment You had [...] Code System PAIN IN RIGHT SHOULDER active 8931243 5296539605 SNOMED-CT DIASTOLIC DYSFUNCTION active 9390569 SNOMED-CT ISCHEMIC CARDIOMYOPATHY active 232102 004 SNOMED-CT HISTORY OF AORTIC VALVE STENOSIS active 3127408870325986 SNOMED-CT PAIN IN RIGHT KNEE active 69849769182 4100 SNOMED-CT HYDROCELE active 21838596 SNOMED-CT FATTY LIVER active 569532752 SNOMED-C T ALCOHOL DEPENDENCE active 27860900 S NOMED-CT OBESITY active 625535883 SNOMED-CT DIABETES 2 active 24782561 SNOMED-CT HYPERLIPIDEMIA active 73565408 SNOME D-CT HTN active 18391318 SNOMED-CT PERIPHERAL NEUROPATHY active 76342255 6 SNOMED-CT DEPRESSION active 58584595 SNOMED-CT DIVERTICULOSIS OF COLON WITHOUT DIVERTICULITIS active 505559811 SNOME D-CT Allergies and Adverse Reactions Allergy Substance Reaction Severity Start Date Concern Status Co de Code System No Known Allergies Moderate Active 502520521 SN OMED-CT Plan of Treatment MRI UPPER EXT JOINT W/O CONTRAST 2023 NM MPI STR/RST 12/16/2022 NM MPI STR/RST 11/25/2022 NM MPI STR/RST 10/15/2022 US TESTICULAR 06/03/2022 US ABDOMEN LIMITED 1 ORGAN 01/01/2022 X-RAY 09/22/2021 X-RAY 06/05/2021 Encounters Encounter Diagnosis Start Date Code Code Sys tem 11/12/2022 [id number] SNOMED-CT Personal Care Team Section Performer Name Performer Role Active Date Inactive Da te
--- OUTSIDE RECORDS SUMMARY | 2024-09-13 10:33 | XMS_ITS ---
Author Organization Unknown Address [address] [place] [address] [phone] Phone Care Team Providers Care Cut Off Worker Name Role Phone JENA POTTS Attending Unavailable FERMIN Ward Primary Unavailable Results NM MPI COMPLETE - Completed: 12/16/2022 13:12 [facility]: [place], [place] [address] PACS AUTOMATIC VULCANIZING OPERATOR REPORT Patient Name: VÍCTOR LANDERS Pepito MRN: Sex: : Age: [id number] M 1950 72 Account: Accession: Admit: StayType: [id number] 12/16/2022 CLINIC Ordered: Order ID: Submitted: Ordering Provider: 12/16/2022 10:04 [id number] HTP DELROY BELLA Completed: Technologist: Resulted: 12/16/2022 13:12 HTP 12/16/2022 17:25 Vasodilator/Pharmacologic Nuclear Stress Test Date: 12/16/2022 09:13 AM EDT Ordering Provider: DELROY BELLA Referring Provider: DELROY BELLA ID number: [id number] Date of : 1950 Age: 72Y Indication for test: CARDIOMYOPATHY, AORTIC STENOSIS The patient underwent vasodilator nuclear stress testing. 10.7 mCi technetium administered at 955 hours as rest dose radionuclide 30.2 mCi technetium administered at 1115 hours as stress dose radionuclide Baseline BP: 162/81 baseline HR: 98 Baseline ECG: Sinus rhythm 74 bpm. Normal axis. Small Q waves leads to 3F. Poor R wave progression across precordial leads. Hemodynamic response: Normal Chest pain: None Arrhythmia: Sinus rhythm baseline, occasional single PVC EKG changes: None Gated imaging demonstrates an ejection fraction of 30%, severe global hypokinesia. The inferobase appears dyskinetic. Perfusion imaging demonstrates a large size intense predominantly fixed lateral/inferolateral/inferior defect. Some reversibility in the lateral wall. 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 Small ischemia. Severe cardiomyopathy with segmental wall motion abnormalities in the infarct zone. Report Digitally Signed by Macie Alaniz on 12/16/2022 05:25 PM EDT 12/16/[email or web address].to FERMIN WEIR via fax Social History Type Status Start Date End Date Code Code Syst em Smoking History Former smoker 6958137 SNOMED CT Sex Male Assessment You had [...] Code System PAIN IN RIGHT SHOULDER active 1971653 4465979076 SNOMED-CT DIASTOLIC DYSFUNCTION active 1331111 SNOMED-CT ISCHEMIC CARDIOMYOPATHY active 016978 004 SNOMED-CT HISTORY OF AORTIC VALVE STENOSIS active 6356134191219750 SNOMED-CT PAIN IN RIGHT KNEE active 31186402311 4100 SNOMED-CT HYDROCELE active 92929145 SNOMED-CT FATTY LIVER active 531168638 SNOMED-C T ALCOHOL DEPENDENCE active 72589793 S NOMED-CT OBESITY active 893437128 SNOMED-CT DIABETES 2 active 45619662 SNOMED-CT HYPERLIPIDEMIA active 81370886 SNOME D-CT HTN active 76906875 SNOMED-CT PERIPHERAL NEUROPATHY active 34061240 6 SNOMED-CT DEPRESSION active 96698171 SNOMED-CT DIVERTICULOSIS OF COLON WITHOUT DIVERTICULITIS active 613413318 SNOME D-CT Allergies and Adverse Reactions Allergy Substance Reaction Severity Start Date Concern Status Co de Code System No Known Allergies Moderate Active 285302752 SN OMED-CT Plan of Treatment MRI UPPER EXT JOINT W/O CONTRAST 2023 NM MPI STR/RST 12/16/2022 NM MPI STR/RST 11/25/2022 NM MPI STR/RST 10/15/2022 US TESTICULAR 06/03/2022 US ABDOMEN LIMITED 1 ORGAN 01/01/2022 X-RAY 09/22/2021 X-RAY 06/05/2021 Encounters Encounter Diagnosis Start Date Code Code Sys tem Ischemic cardiomyopathy 12/16/2022 SNOM ED-CT Personal Care Team Section Performer Name Performer Role Active Date Inactive Tyrese heath
--- OUTSIDE RECORDS SUMMARY | 2024-09-13 10:33 | XMS_ITS ---
Author Organization Unknown Address [address] [place] [address] [phone] Phone Care Team Providers Care Employment Representative Name Role Phone DOUG Ward Attending Unavailable FERMIN Ward Primary Unavailable Results XR KNEE 4V LT* - Completed: 05/20/2023 15:47 LOINC: [place], [place] [address] PACS 8TH GRADE TEACHER REPORT Patient Name: VÍCTOR LANDERS MRN: Sex: : Age: [id number] M 1950 72 Account: Accession: Admit: StayType: [id number] 05/20/2023 CLINIC Ordered: Order ID: Submitted: Ordering Provider: 05/20/2023 14:51 [id number] [facility] HAYLEE CAMACHO Completed: Technologist: Resulted: 05/20/2023 15:47 AX 05/20/2023 17:44 Study Description: XR KNEE 4V LT Study Reason: Pain Technique: 2D digital imaging was performed. 4 images were obtained. COMPARISON: 22 September 2021 FINDINGS: Bones: No acute fractures present. No bony destructive lesion is seen. Joints: Moderate to severe narrowing of the medial femoral-tibial joint space. Mild periarticular spurring throughout. Patellofemoral joint space is maintained. No joint effusion is seen. Soft tissues: Vascular calcifications. IMPRESSION: Moderate severe degenerative changes of the medial femoral-tibial joint. Report Digitally Signed by Ksenia Daly on 05/20/2023 05:44 PM EDT Social History Type Status Start Date End Date Code Code Syst em Smoking History Former smoker 8106919 SNOMED CT Sex Male Assessment You had [...] Code System PAIN IN RIGHT SHOULDER active 0041792 8162079819 SNOMED-CT DIASTOLIC DYSFUNCTION active 7810420 SNOMED-CT ISCHEMIC CARDIOMYOPATHY active 512106 004 SNOMED-CT HISTORY OF AORTIC VALVE STENOSIS active 9327443209728840 SNOMED-CT PAIN IN RIGHT KNEE active 12171137887 4100 SNOMED-CT HYDROCELE active 08185334 SNOMED-CT FATTY LIVER active 818096297 SNOMED-C T ALCOHOL DEPENDENCE active 74858638 S NOMED-CT OBESITY active 607632129 SNOMED-CT DIABETES 2 active 02131565 SNOMED-CT HYPERLIPIDEMIA active 63142725 SNOME D-CT HTN active 28789459 SNOMED-CT PERIPHERAL NEUROPATHY active 04717768 6 SNOMED-CT DEPRESSION active 16399910 SNOMED-CT DIVERTICULOSIS OF COLON WITHOUT DIVERTICULITIS active 733098644 SNOME D-CT Allergies and Adverse Reactions Allergy Substance Reaction Severity Start Date Concern Status Co de Code System No Known Allergies Moderate Active 897063839 SN OMED-CT Plan of Treatment MRI UPPER EXT JOINT W/O CONTRAST 2023 NM MPI STR/RST 12/16/2022 NM MPI STR/RST 11/25/2022 NM MPI STR/RST 10/15/2022 US TESTICULAR 06/03/2022 US ABDOMEN LIMITED 1 ORGAN 01/01/2022 X-RAY 09/22/2021 X-RAY 06/05/2021 Encounters Encounter Diagnosis Start Date Code Code Sys tem Idiopathic osteoarthritis 05/20/2023 633650197 SN OMED-CT Personal Care Team Section Performer Name Performer Role Active Date Inactive Da te
--- OUTSIDE RECORDS SUMMARY | 2024-09-13 10:34 | XMS_ITS ---
Author Organization Unknown Address [address] [place] [address] [phone] Phone Care Team Providers Care Sales Representative Adding Machines Name Role Phone ERIKA GRIFFITHS Registered Nurse Unavailable LIYA Beyer Attending Unavailable VERONIKA Nunez [facility] Unavailable FERMIN Ward Primary Unavailable UNLISTED PROVIDER - REQUESTED Xhandoff Un available Results XR CHEST 2V PA AND LATERAL - Completed: 09/10/2023 14:28 LOINC: [facility] [place], [place] [address] PACS SERVICE WORKER REPORT Patient Name: VÍCTOR LANDERS MRN: Sex: : Age: [id number] M 1950 72 Account: Accession: Admit: StayType: [id number] 09/10/2023 E/R Ordered: Order ID: Submitted: Ordering Provider: 09/10/2023 14:16 [id number] MEDHAT VALENCIA Completed: Technologist: Resulted: 09/10/2023 14:28 KMD 09/10/2023 14:29 Study Description: XR CHEST 2V PA AND LATERAL Study Reason: Trauma Technique: 2D digital imaging was performed of the chest. 3 images were obtained. Comparison: None. FINDINGS: MEDIASTINUM: Normal. HEART: Normal. PULMONARY VASCULATURE: Normal. LUNGS: No focal consolidating infiltrates. PLEURAL SPACE: There is blunting of the right costophrenic angle which may present a small effusion or scarring. No left pleural effusion is seen. No pneumothorax is identified. BONE:Within normal limits for the patient's age. OTHER FINDINGS:Normal. IMPRESSION: 1. Blunting of the left costophrenic angle which may present a small pleural effusion or scarring. 2. No focal consolidation. Report Digitally Signed by Fred Orellana on 09/10/2023 02:29 PM EST Social History Type Status Start Date End Date Code Code Syst em Smoking History Former smoker 1255928 SNOMED CT Sex Male Vital Signs Vital Sign Value Unit [place] Value [place] Unit Date/Time Recent/Initial? Code Code System Body Mass Index 30.11 kg/m2 09/10/2023 14:04 Initial 02616 -5 LOINC Systolic Blood Pressure 155 mm[Hg] 09/10/2023 14:55 Most Recent 8480- 6 LOINC Diastolic Blood Pressure 93 mm[Hg] 09/10/2023 14:55 Most Recent 8462- 4 LOINC Systolic Blood Pressure 160 mm[Hg] 09/10/2023 14:04 Initial 8480- 6 LOINC Diastolic Blood Pressure 83 mm[Hg] 09/10/2023 14:04 Initial 8462- 4 LOINC Body Surface Area 2.26 m2 09/10/2023 14:04 Initial 3140- 1 LOINC Height 182.880 0 cm 72.00 in 09/10/2023 14:04 Initial 8302- 2 LOINC O2 Saturation 96 % 2023 14:55 Most Recent 80595 -5 LOINC O2 Saturation 95 % 2023 14:04 Initial 49355 -5 LOINC Pulse 73.0 /min 09/10/2023 14:55 Most Recent 8867- 4 LOINC Pulse 74.0 /min 09/10/2023 14:04 Initial 8867- 4 LOINC Respiration 18 /min 09/10/19 14:55 Most Recent 9279- 1 LOINC Respiration 20 /min 09/10/19 14:04 Initial 9279- 1 LOINC Temperature 36.1 Faustina 97.0 F 09/10/19 14:04 Initial 8310- 5 [facility] Weight 100.70 kg 222.00 lbs 09/10/2023 14:04 Initial 02321 -7 [facility] Assessment You had the following problems:PAIN IN [...] Code System PAIN IN RIGHT SHOULDER active 4460535 5974507605 SNOMED-CT DIASTOLIC DYSFUNCTION active 8871853 SNOMED-CT ISCHEMIC CARDIOMYOPATHY active 959503 004 SNOMED-CT HISTORY OF AORTIC VALVE STENOSIS active 2625863279918033 SNOMED-CT PAIN IN RIGHT KNEE active 63419461439 4100 SNOMED-CT HYDROCELE active 62816313 SNOMED-CT FATTY LIVER active 472582092 SNOMED-C T ALCOHOL DEPENDENCE active 21421095 S NOMED-CT OBESITY active 547550525 SNOMED-CT DIABETES 2 active 79737715 SNOMED-CT HYPERLIPIDEMIA active 09629699 SNOME D-CT HTN active 12689049 SNOMED-CT PERIPHERAL NEUROPATHY active 33528600 6 SNOMED-CT DEPRESSION active 26619421 SNOMED-CT DIVERTICULOSIS OF COLON WITHOUT DIVERTICULITIS active 287039438 SNOME D-CT Allergies and Adverse Reactions Allergy Substance Reaction Severity Start Date Concern Status Co de Code System No Known Allergies Moderate Active 334759742 SN OMED-CT Plan of Treatment MRI UPPER EXT JOINT W/O CONTRAST 2023 NM MPI STR/RST 12/16/2022 NM MPI STR/RST 11/25/2022 NM MPI STR/RST 10/15/2022 US TESTICULAR 06/03/2022 US ABDOMEN LIMITED 1 ORGAN 01/01/2022 X-RAY 09/22/2021 X-RAY 06/05/2021 Encounters Encounter Diagnosis Start Date Code Code Sys tem Fracture of one rib, right s arabella, initial encounter for closed fracture 09/10/2023 SNOMED-CT Personal Care Team Section Performer Name Performer Role Active Date Inactive Da te
--- OUTSIDE RECORDS SUMMARY | 2024-09-13 10:35 | XMS_ITS ---
Author Organization Unknown Address [address] [place] [address] [phone] Phone Care Team Providers Care Bin Cleaner Name Role Phone LEWIS JOSE DE JESUS Magdaleno Attending Unavailable FERMIN Ward Primary Unavailable Social History Type Status Start Date End Date Code Code Syst em Smoking History Former smoker 5141055 SNOMED CT Sex Male Assessment You had [...] Code System PAIN IN RIGHT SHOULDER active 3146036 8971844432 SNOMED-CT DIASTOLIC DYSFUNCTION active 1995534 SNOMED-CT ISCHEMIC CARDIOMYOPATHY active 131016 004 SNOMED-CT HISTORY OF AORTIC VALVE STENOSIS active 7860993484403100 SNOMED-CT PAIN IN RIGHT KNEE active 12157745494 4100 SNOMED-CT HYDROCELE active 47070629 SNOMED-CT FATTY LIVER active 092420613 SNOMED-C T ALCOHOL DEPENDENCE active 65120703 S NOMED-CT OBESITY active 151837044 SNOMED-CT DIABETES 2 active 63389842 SNOMED-CT HYPERLIPIDEMIA active 19453826 SNOME D-CT HTN active 51164159 SNOMED-CT PERIPHERAL NEUROPATHY active 29709217 6 SNOMED-CT DEPRESSION active 08770143 SNOMED-CT DIVERTICULOSIS OF COLON WITHOUT DIVERTICULITIS active 350687797 SNOME D-CT Allergies and Adverse Reactions Allergy Substance Reaction Severity Start Date Concern Status Co de Code System No Known Allergies Moderate Active 925080353 SN OMED-CT Plan of Treatment MRI UPPER EXT JOINT W/O CONTRAST 2023 NM MPI STR/RST 12/16/2022 NM MPI STR/RST 11/25/2022 NM MPI STR/RST 10/15/2022 US TESTICULAR 06/03/2022 US ABDOMEN LIMITED 1 ORGAN 01/01/2022 X-RAY 09/22/2021 X-RAY 06/05/2021 Encounters Encounter Diagnosis Start Date Code Code Sys tem Aortic stenosis, non-rheumatic 01/05/2024 922151265 SNOMED-CT Personal Care Team Section Performer Name Performer Role Active Date Inactive Da te
--- OUTSIDE RECORDS SUMMARY | 2024-09-13 10:35 | XMS_ITS | Encounter Summary ---
Author Organization [facility] Address [address] [place] [address] Care Team Providers Care Cavity Pump Operator Name Role Phone Yoli Peters MD Primary Care Provide r Reason for Visit * Reason Onset Date Comments Post-OP Follow Up 09/10/2022 Encounter Details Date Type Department Care Team (Late st Contact Info) Description 09/10/2022 Telephone [facility] [address] [place] [address] Daniel Blake MD [address] [facility] [address] [place] [address] Post-OP Follow Up Social History Tobacco Use Types Packs/Day Years Used Date Smoking Tobacco: Former Cigarettes 1 15 1 10/13/1988 - 08/12/2004 Passive Smoke Exposure: Never Smokeless Tobacco: Never Alcohol Use Standard Drinks/Week Comments Not Currently 15 (1 standard drink = 0.6 oz pu re alcohol) Sex and Gender Information Value Date Recorded Sex Assigned at Not on file Legal Sex Male 9:20 EDT Gender Identity Male 05/28/2022 8:29 EDT Sexual Orientation Not on file COVID-19 Exposure Response Date Recorded In the last 10 days, have yo u been in contact with someone who was confirmed or suspected to have Coronavirus/COVID-19? No / Unsure 09/09/2022 6:44 EST documented as of this encounter Miscellaneous Notes * Telephone Encounter - Daniel Blake MD - 09/10/2022 0812 EST POD 1 from left hydrocelectomy: he is comfortable . Minimal drainage out ALKA. I spoke to Dr. Bryson: she will try to get him in tomorrow in [place] for drain removal as opposed to coming back to [facility]. He is amenable. documented in this encounter Plan of Treatment Not on file documented as of this encounter Visit Diagnoses Not on filedocumented in this encounter Care Teams Cavity Pump Operator Relationship Specialty Start Date End Date Yoli Peters MD [address] [facility] [address] [place] [id number] PCP - General 05/27/22 documented as of this encounter
--- OUTSIDE RECORDS SUMMARY | 2024-09-13 10:35 | XMS_ITS | Clinical Summary ---
Author Organization [facility] Address [address] [place] [address] Care Team Providers Care Senior Electronics Design Engineer Name Role Phone Yoli Peters MD Primary Care Provide r Allergies No known active allergies Medications atorvastatin (LIPITOR) 20 mg tablet Take 20 mg by mouth daily. Active allopurinoL (ZYLOPRIM) 100 mg tablet Take 100 mg by mouth daily. Active colchicine (COLCRYS) 0.6 mg tablet Take 0.6 mg by mouth daily. Active ibuprofen (MOTRIN) 400 mg tablet Take 400 mg by mouth 2 times daily. Active oxyCODONE (ROXICODONE) 5 mg immediate release tablet Take 1 Tablet by mouth every 6 hours as needed for up to 8 doses for Pain (post op surgery). Daily Max: 20 mg 8 Tablet 09/09/2022 Active Medical History Medical History Date Comments Hyperlipidemia Social History Tobacco Use Types Packs/Day Years Used Date Smoking Tobacco: Former Cigarettes 1 15 1 10/13/1988 - 08/12/2004 Passive Smoke Exposure: Never Smokeless Tobacco: Never Tobacco Cessation:Counseling Given: Not Answered Alcohol Use Standard Drinks/Week Comments Not Currently 15 (1 standard drink = 0.6 oz pu re alcohol) Sex and Gender Information Value Date Recorded Sex Assigned at Not on file Legal Sex Male 9:20 EDT Gender Identity Male 05/28/2022 8:29 EDT Sexual Orientation Not on file Obstetrics History Last Filed Vital Signs Vital Sign Reading Time Taken Comments Blood Pressure 135/74 09/09/2022 1045 EST Pulse - - Temperature 36.4 ??C (97.6 ??F) 09/09/2022 1045 EST Respiratory Rate 19 09/09/2022 1045 EST Oxygen Saturation 94% 09/09/2022 1045 EST Inhaled Oxygen Concentration - - Weight 111.6 kg (246 lb) 09/09/2022 0648 EST Height 180.3 cm (5' 11) 09/09/2022 0648 EST Body Mass Index 34.31 09/09/2022 0648 EST Plan of Treatment Health Maintenance Due Date Last Done Comments Hepatitis C Screen 1950 Fall Risk Screening 2014 COVID-19 Vaccine ( - 2023-25 season) 2024 RSV Immunization ( o r 60+ Years) (1 - 1-dose 75+ series) 2024 Medical Devices Implanted Type Area Broaching Machine Operator Device Identifier Shelf Expiration Date Model / Serial / Lot Bilater Hip Repalcement Ortho Implant Ortho Implant Insurance [employer] MEDICARE MEDICAID [place] [employer] MEDICARE MEDICAID [place] Care Teams Senior Electronics Design Engineer Relationship Specialty Start Date End Date Yoli Peters MD [address] [facility] [address] [place], [place] [phone] PCP - General 05/27/22
--- OUTSIDE RECORDS SUMMARY | 2024-09-13 10:35 | XMS_ITS ---
Author Organization Unknown Address [address] [place] [phone] Phone Care Team Providers Care Wrap Turner Name Role Phone SHELBI Cagle Attending Unavailable FERMIN Ward Primary Unavailable Social History Type Status Start Date End Date Code Code Syst em Smoking History Former smoker 8798318 SNOMED CT Sex Male Assessment You had [...] Code System PAIN IN RIGHT SHOULDER active 3404247 [id number] SNOMED-CT DIASTOLIC DYSFUNCTION active 5951083 SNOMED-CT ISCHEMIC CARDIOMYOPATHY active 464296 004 SNOMED-CT HISTORY OF AORTIC VALVE STENOSIS active 4736845945270219 SNOMED-CT PAIN IN RIGHT KNEE active 02205214790 4100 SNOMED-CT HYDROCELE active 44693747 SNOMED-CT FATTY LIVER active 094188895 SNOMED-C T ALCOHOL DEPENDENCE active 27474230 S NOMED-CT OBESITY active 468232532 SNOMED-CT DIABETES 2 active 21485133 SNOMED-CT HYPERLIPIDEMIA active 09277423 SNOME D-CT HTN active 89305483 SNOMED-CT PERIPHERAL NEUROPATHY active 22193533 6 SNOMED-CT DEPRESSION active 14071635 SNOMED-CT DIVERTICULOSIS OF COLON WITHOUT DIVERTICULITIS active 026552208 SNOME D-CT Allergies and Adverse Reactions Allergy Substance Reaction Severity Start Date Concern Status Co de Code System No Known Allergies Moderate Active 598895350 SN OMED-CT Plan of Treatment MRI UPPER EXT JOINT W/O CONTRAST 2023 NM MPI STR/RST 12/16/2022 NM MPI STR/RST 11/25/2022 NM MPI STR/RST 10/15/2022 US TESTICULAR 06/03/2022 US ABDOMEN LIMITED 1 ORGAN 01/01/2022 X-RAY 09/22/2021 X-RAY 06/05/2021 Personal Care Team Section Performer Name Performer Role Active Date Inactive Da te
--- OUTSIDE RECORDS SUMMARY | 2024-09-13 10:35 | XMS_ITS | Encounter Summary ---
Author Organization [facility] Address [address] [place] [address] Care Team Providers Care Ground Intelligence Officer Name Role Phone Yoli Peters MD Primary Care Provide r Encounter Details Date Type Department Care Team (Latest Contact Info) Description 09/09/2022 Travel Social History Tobacco Use Types Packs/Day Years [...] 6:44 EST documented as of this encounter Plan of Treatment Not on file documented as of this encounter Visit Diagnoses Not on filedocumented in this encounter Care Teams Ground Intelligence Officer Relationship Specialty Start Date End Date Yoli Peters MD [address] [place] [address] [address] [place] [address] PCP - General 05/27/22 documented as of this encounter
--- OUTSIDE RECORDS SUMMARY | 2024-09-13 10:35 | XMS_ITS | Encounter Summary ---
Author Organization [facility] Address [address] [place] [address] Care Team Providers Care Parole Or Probation Officer Name Role Phone Yoli Peters MD Primary Care Provide r Reason for Visit * Reason Comments New Patient Visit * Referral (Routine) - Authorization Not Required Specialty Diagnoses / Procedures [facility]erred To Contact Urology Diagnoses Hydrocele, left Testicular pain, right [facility] [address] [place] [phone] Phone: tel: fax: Referral ID Status Reason Start Date Expiration Date Visits Requested Visits Authorized [id number] Authorization Not Required 1 1 Encounter Details Date Type Department Care Team (Late st Contact Info) Description 06/09/2022 15:30 EDT Office Visit [facility] [address] [place] [phone] Daniel Blake MD [address] [place] [address] [place] [phone] Hydrocele in adult (Primary Dx) Social History Tobacco Use Types Packs/Day Years Used Date Smoking Tobacco: Never Assessed Smokeless Tobacco: Never Sex and Gender Information Value Date Recorded Sex Assigned at Not on file Legal Sex Male 9:20 EDT Gender Identity Male 05/28/2022 8:29 EDT Sexual Orientation Not on file documented as of this encounter Progress Notes * Milagros Aguayo, RN - 06/09/2022 1530 EDT Chart Prep Reason for Visit: testicular pain Last Seen: New patient Other pertinent information from chart: ??? Left hydrocele, right testicular pain; has been ongoing for about decade-saw Dr Wade in 2013 but was not satisfied with that visit. ??? Left testicle growing in size while right appears to be smaller at this point. * Daniel Blake MD - 06/09/2022 1530 EDT Chief Complaint: Chief Complaint Patient presents with ??? New Patient Visit Reason for Consult: Urology was asked to see Moises at the request of Yoli Peters for evaluation of hydrocele. HPI: Moises is a 71 y.o. male with recent sono at [facility]: large left hydrocele. Has pain right testicle: normal on sono. Saw Dr. Wade several years ago. Thinks the hydrocele has been getting bigger. Has episodic pain on the left: has fairly chronic low level discomfort on the right. No prior instrumentation. No hx epididymitis, trauma etc. No hx malignancy. Stable voiding. No dysuria, fever, hematuria. . There is no problem list on file for this patient. PMH PSH No past medical history on file. No past surgical history on file. Social History Family History Social History Tobacco Use ??? Smoking status: Not on file ??? Smokeless tobacco: Never Used Substance Use Topics ??? Alcohol use: Not on file No family history on file. Medications No current outpatient medications on file. Allergies No Known Allergies Review of Systems: Review of Systems Constitutional: Negative. HENT: Positive for hearing loss. Eyes: Negative. Respiratory: Negative. Cardiovascular: Negative. Gastrointestinal: Negative. Genitourinary: Negative. Musculoskeletal: Positive for joint pain. Skin: Negative. Neurological: Negative. Endo/Heme/Allergies: Negative. Psychiatric/Behavioral: Negative. Objective/Physical Exam: Vital Signs: There were no vitals taken for this visit. Exam: Constitutional: Alert, in no distress. Respiratory: Respirations unlabored. Cardiovascular: Pulse regular. Gastrointestinal: Abdomen soft, non tende Genital: Circumcised phallus with patent meatus at the tip, no plaques. Testes descended bilaterally without masses. Large left hydrocele Rectal: declined Musculoskeletal: Extremities warm without edema. Skin: Skin warm and dry. Neuro: alert and oriented Data Review: NA Labs: U/A: No results found for: CLARITYU, LABSPEC, PHUR, GLUCOSEU, BILIRUBINUR, KETONES, BLOODU, PROTEINUR Other Studies: N/A Impression: Left hydrocele: large. Potentially resulting in some chronic discomfort on right. Rightside totally normal on sono. Discussed that hydrocele is a benign condition that likely will slowlyincrease in size. Will not resolve on its own. Aspiration is not a durable solution. Reviewed anatomy and technique hydrocele: risks of infection, post op pain, hematoma, recurrence, testicular injury reviewed. He wants to think about it an let me know. He was reassured that the hydrocele was benign. Suggestions/Recommendations: Stand by: will call when he wants to pursue hydrocelectomy. Daniel Blake MD FACS documented in this encounter Plan of Treatment Not on file documented as of this encounter Visit Diagnoses Diagnosis Hydrocele in adult- Primary documented in this encounter Historical Medications * This list may reflect changes made after this encounter. atorvastatin (LIPITOR) 20 mg tablet Take 20 mg by mouth daily. added in this encounter Care Teams Parole Or Probation Officer Relationship Specialty Start Date End Date Yoli Peters MD [address] [place] [phone] PCP - General 05/27/22 documented as of this encounter
--- OUTSIDE RECORDS SUMMARY | 2024-09-13 10:35 | XMS_ITS ---
Author Organization Unknown Address [address] [place] [phone] Phone Care Team Providers Care News Cameraman Name Role Phone SHELBI Cagle Attending Unavailable FERMIN Ward Primary Unavailable Results XR SHOULDER 2V OR MORE LT* - Completed: 06/12/2024 11:57 LOINC: [facility] [place], [place] [address] RADIOLOGY STEEL RULE INSPECTOR REPORT Patient Name: VÍCTOR LANDERS Pepito MRN: Sex: : Age: [id number] M 1950 73 Account: Accession: Admit: StayType: [id number] 06/12/2024 O Ordered: Order ID: Submitted: Ordering Provider: 06/12/2024 11:43 [id number] LB AJIT MARIO Completed: Technologist: Resulted: 06/12/2024 11:42 LB 06/12/2024 14:40 EXAMINATION: * XR SHOULDER 2V OR MORE LT * XR SHOULDER 2V OR MORE RT CLINICAL HISTORY: Reason for Extrem: Pain Add'l Info: TECHNIQUE: 2 views of the bilateral shoulders were obtained. COMPARISON: There is no similar prior examination provided for comparison. FINDINGS: There is no fracture. There is no dislocation. There is moderate bilateral glenohumeral and acromioclavicular joint space narrowing associated with subchondral sclerosis and juxta-articular osteophyte formation. There is superior subluxation of the humerus as compared to the glenoid, right greater than left. The glenohumeral interval on the right is 6 mm and is 8 to 9 mm on the left. Visualized aspects of the bilateral lungs are clear. The visualized soft tissue structures are otherwise within normal limits. There is no radiopaque foreign body. IMPRESSION: 1. No acute osseous abnormality. 2. Moderate bilateral glenohumeral osteoarthritis, right greater than left. 3. Superior subluxation of the bilateral humeri, right greater left, suggesting underlying chronic rotator cuff tear injury. Thank you for letting us participate in the care of this patient. If you are a health care provider and have any questions regarding this report, please contact the number below. For patients who have questions please contact the health resident care assistant that requested your imaging first. SHOULDER 2V OR MORE RT* - Completed: 06/12/2024 11:57 LOINC: [facility] [place], [place] [address] RADIOLOGY STEEL RULE INSPECTOR REPORT Patient Name: VÍCTOR LANDERS MRN: Sex: : Age: [id number] M [id number] Account: Accession: Admit: StayType: [id number] 06/12/2024 O Ordered: Order ID: Submitted: Ordering Provider: 06/12/2024 11:43 [id number] LB AJIT MARIO Completed: Technologist: Resulted: 06/12/2024 11:42 LB 06/12/2024 14:40 EXAMINATION: * XR SHOULDER 2V OR MORE LT * XR SHOULDER 2V OR MORE RT CLINICAL HISTORY: Reason for Extrem: Pain Add'l Info: TECHNIQUE: 2 views of the bilateral shoulders were obtained. COMPARISON: There is no similar prior examination provided for comparison. FINDINGS: There is no fracture. There is no dislocation. There is moderate bilateral glenohumeral and acromioclavicular joint space narrowing associated with subchondral sclerosis and juxta-articular osteophyte formation. There is superior subluxation of the humerus as compared to the glenoid, right greater than left. The glenohumeral interval on the right is 6 mm and is 8 to 9 mm on the left. Visualized aspects of the bilateral lungs are clear. The visualized soft tissue structures are otherwise within normal limits. There is no radiopaque foreign body. IMPRESSION: 1. No acute osseous abnormality. 2. Moderate bilateral glenohumeral osteoarthritis, right greater than left. 3. Superior subluxation of the bilateral humeri, right greater left, suggesting underlying chronic rotator cuff tear injury. Thank you for letting us participate in the care of this patient. If you are a health care provider and have any questions regarding this report, please contact the number below. For patients who have questions please contact the health resident care assistant that requested your imaging first. Social History Type Status Start Date End Date Code Code Syst em Smoking History Former smoker 2799864 SNOMED CT Sex Male Assessment You had [...] Code System PAIN IN RIGHT SHOULDER active 2655649 6983717368 SNOMED-CT DIASTOLIC DYSFUNCTION active 3399935 SNOMED-CT ISCHEMIC CARDIOMYOPATHY active 513613 004 SNOMED-CT HISTORY OF AORTIC VALVE STENOSIS active 1529049059839310 SNOMED-CT PAIN IN RIGHT KNEE active 22277879124 4100 SNOMED-CT HYDROCELE active 11564417 SNOMED-CT FATTY LIVER active 724217607 SNOMED-C T ALCOHOL DEPENDENCE active 23791730 S NOMED-CT OBESITY active 229226261 SNOMED-CT DIABETES 2 active 54318666 SNOMED-CT HYPERLIPIDEMIA active 64943743 SNOME D-CT HTN active 00545206 SNOMED-CT PERIPHERAL NEUROPATHY active 77070673 6 SNOMED-CT DEPRESSION active 58830204 SNOMED-CT DIVERTICULOSIS OF COLON WITHOUT DIVERTICULITIS active 624563018 SNOME D-CT Allergies and Adverse Reactions Allergy Substance Reaction Severity Start Date Concern Status Co de Code System No Known Allergies Moderate Active 947364701 SN OMED-CT Plan of Treatment MRI UPPER EXT JOINT W/O CONTRAST 2023 NM MPI STR/RST 12/16/2022 NM MPI STR/RST 11/25/2022 NM MPI STR/RST 10/15/2022 US TESTICULAR 06/03/2022 US ABDOMEN LIMITED 1 ORGAN 01/01/2022 X-RAY 09/22/2021 X-RAY 06/05/2021 Encounters Encounter Diagnosis Start Date Code Code Sys tem Nontraumatic complete ruptur e of rotator cuff of right shoulder 06/12/2024 [id number] SNOMED-CT Personal Care Team Section Performer Name Performer Role Active Date Inactive Da te
--- OUTSIDE RECORDS SUMMARY | 2024-09-13 10:35 | XMS_ITS | Continuity of Care Document ---
Author Organization [facility] Address [address] [place] [address] Encounter [id number] Date(s): 10/14/22 - 10/14/22 [facility] [address] [place] [address] Encounter Diagnosis Right shoulder pain(Discharge Diagnosis) - 10/14/22 Discharge Disposition: Home or Self Care Attending Physician: Ky Jain MD Admitting Physician: Ky Jain MD Referring Physician: Ky Jain MD Assessment and Plan Future Appointments Medications lisinopril 10 mg oral tablet 10 mg = 1 tab, Oral, Daily, # 30 tab, 0 Refill(s) Start Date: 07/21/22 Status: Ordered Voltaren 1% topical gel 1 emily, Topical, QID, # 100 g, 0 Refill(s) Start Date: 07/21/22 Status: Ordered Problem List Condition Confirmation Course Effective Dates Status Health St atus Informant Diabetes mellitus Confirmed Active Hypertension Confirmed Active Alcohol use disorder, moderate, dependence Confirmed Active 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 Sex
--- OUTSIDE RECORDS SUMMARY | 2024-09-13 10:35 | XMS_ITS | Referral Summary ---
Author Organization [facility] Address [address] [place] [address] Care Team Providers Care Soil Science Professor Name Role Phone Yoli Peters MD Primary [...] Max: 20 mg 8 Tablet 09/09/2022 Active Social History Tobacco Use Types Packs/Day Years [...] 8:29 EDT Sexual Orientation Not on file Last Filed Vital Signs Vital Sign Reading [...] 34.31 09/09/2022 0648 EST Plan of Treatment Not on file Medical Devices Implanted Type Area Bi Tri Operator Device Identifier Shelf Expiration Date Model / Serial / Lot Bilater Hip Repalcement Ortho Implant Ortho Implant Insurance [employer] MEDICARE MEDICAID [place] [employer] MEDICARE [place]ID [place] Care Teams Soil Science Professor Relationship Specialty Start Date End Date Yoli Peters MD [address] [facility] [address] [place], [place] [phone] PCP - General 05/27/22
--- OUTSIDE RECORDS SUMMARY | 2024-09-13 10:35 | XMS_ITS | Encounter Summary ---
Author Organization [facility] Address [address] [place] [address] Care Team Providers Care Concrete Panel Installer Name Role Phone Yoli Peters MD Primary Care Provide r Reason for Visit * Auth/Cert (Routine) Specialty Diagnoses / Procedures Referred By Maxim torres Referred To Contact Diagnoses Left hydrocele Left hydrocele [N43.3] Procedures RI REMOVAL OF HYDROCELE,TUNICA,UNILAT HYDROCELECTOMY, UNILATERAL Referral ID Status Reason Start Date Expiration Date Visits Re quested Visits Authorized [id number] 09/09/2022 12/08/2022 1 1 Encounter Details Date Type Department Care Team (Late st Contact Info) Description 09/09/2022 7:30 EST - 09/09/2022 9:15 EST Surgery [facility] Operating Room [address] [place] [address] Daniel Blake MD [address] [facility] [address] [place] [address] HYDROCELECTOMY, UNILATERAL [[id number] (CPT??)] Surgery Details Date/Time Status Location OR Service Patient Class Case Cl ass Case Type Trauma Case? 09/09/[address] [facility] OR [address] Outpatient Surgery H - Elective Panel 1 Procedure LRB Anes Op Region Wound Class Comments HYDROCELECTOMY, UNILATERAL Left General Class II/ Clean Contaminated Surgeon Surgeon Role Service Panel Daniel Blake MD Primary Urology 1 Special Needs SF documented in this encounter Social History Tobacco Use Types Packs/Day Years [...] 6:44 EST documented as of this encounter Last Filed Vital Signs Vital Sign Reading Time Taken Comments Blood Pressure 131/73 09/09/2022 0915 EST Pulse - - Temperature 36.8 ??C (98.3 ??F) 09/09/2022 0858 EST Respiratory Rate 14 09/09/2022 0915 EST Oxygen Saturation 93% 09/09/2022 0915 EST Inhaled Oxygen Concentration - - Weight 111.6 kg (246 lb) 09/09/2022 0648 EST Height 180.3 cm (5' 11) 09/09/2022 0648 EST Body Mass Index 34.31 09/09/2022 0648 EST documented in this encounter Discharge Instructions * Discharge Instructions* Daniel Blake MD - 09/09/2022 9:02 EST Keep the dressing clean and dry. We will remove the drain on Wednesday. Use ice on the scrotum periodically for the next few days. You will be able to shower when drain comes out: no tub baths. Use Tylenol or ibuprofen as needed for pain. Call office [phone] for any concerns. documented in this encounter Medications at Time of Discharge allopurinoL (ZYLOPRIM) 100 mg tablet Take 100 mg by mouth daily. atorvastatin (LIPITOR) 20 mg tablet Take 20 mg by mouth daily. colchicine (COLCRYS) 0.6 mg tablet Take 0.6 mg by mouth daily. ibuprofen (MOTRIN) 400 mg tablet Take 400 mg by mouth 2 times daily. oxyCODONE (ROXICODONE) 5 mg immediate release tablet Take 1 Tablet by mouth every 6 hours as needed for up to 8 doses for Pain (post op surgery). Daily Max: 20 mg 8 Tablet 09/09/2022 documented as of this encounter Discharge Disposition Disposition Code Departure Means Destination Home or Self Long-Term documented in this encounter H&P Notes * Daniel Blake MD - 09/09/2022 0710 EST Hydrocele in adult Dx New Patient Visit Reason for Visit Progress Notes Daniel Balke MD (Physician) ? Urology Chief Complaint: Chief Complaint Patient presents with ??? New Patient Visit ? Reason for Consult: Urology was asked to see Moises at the request of Yoli Peters for evaluation of hydrocele. ?? HPI: Moises is a 71 y.o. male with recent sono at [facility]: large left hydrocele. Has pain right testicle: normal on sono. Saw Dr. Wade several years ago. Thinks the hydrocele has been getting bigger. Has episodic pain on the left: has fairly chronic low level discomfort on the right. No prior instrumentation. No hx epididymitis, trauma etc. No hx malignancy. Stable voiding. No dysuria, fever, hematuria. . ?? There is no problem list on file for this patient. ? PMH PSH No past medical history on file. No past surgical history on file. ?? Social History Family History Social History ?? Tobacco Use ??? Smoking status: Not on file ??? Smokeless tobacco: Never Used Substance Use Topics ??? Alcohol use: Not on file ?? No family history on file. ?? Medications No current outpatient medications on file. ?? Allergies No Known Allergies ?? Review of Systems: Review of Systems Constitutional: Negative. HENT: Positive for hearing loss. Eyes: Negative. Respiratory: Negative. Cardiovascular: Negative. Gastrointestinal: Negative. Genitourinary: Negative. Musculoskeletal: Positive for joint pain. Skin: Negative. Neurological: Negative. Endo/Heme/Allergies: Negative. Psychiatric/Behavioral: Negative. ? Objective/Physical Exam: Vital Signs: There were no vitals taken for this visit. ?? Exam: Constitutional: Alert, in no distress. Respiratory: Respirations unlabored. CTAB Cardiovascular: Pulse [id number] without murmur Gastrointestinal: Abdomen soft, non tende Genital: Circumcised phallus with patent meatus at the tip, no plaques. Testes descended bilaterally without masses. Large left hydrocele Rectal: declined Musculoskeletal: Extremities warm without edema. Skin: Skin warm and dry. Neuro: alert and oriented ? Data Review: NA Labs: U/A: No results found for: CLARITYU, LABSPEC, PHUR, GLUCOSEU, BILIRUBINUR, KETONES, BLOODU, PROTEINUR Other Studies: N/A ?? Impression: Left hydrocele: large. Potentially resulting in [...] was reassured that the hydrocele was benign. ?? Suggestions/Recommendations: He elects to proceed with hydrocelectomy.? Daniel Blake MD FACS documented in this encounter Nursing Notes * Meggan Faulkner RN - 09/09/2022 1135 EST Discharge instructions reviewed with patient. Patient able to verbalize good understanding of information as presented. Discharged home via wheelchair to car. documented in this encounter OR Notes * OR Surgeon - Daniel Blake MD - 09/09/2022 0854 EST HYDROCELECTOMY, UNILATERAL (L) Operative Note Date: 09/09/2022 Location: [facility] OR Name: Moises Cox, : 1950, Diagnosis Pre-Op Diagnosis Codes: * Left hydrocele [N43.3] Post-op Diagnosis * Left hydrocele [N43.3] Procedures * HYDROCELECTOMY, UNILATERAL Surgeons * Daniel Blake MD - Primary Procedure Summary Anesthesia: General ASA: ASA status not filed in the log. Estimated Blood Loss: No Blood Loss Documented Total IV Fluids: 300 mL LDAs: Peripheral IV 09/09/22 0717 Posterior;Right Hand (Active) Closed/Suction Drain Groin 19 Mongolian (Active) Wound 09/09/22 Scrotum (Active) [REMOVED] Non-Surgical Airway (Removed) Staff: Electronic Train Control Technician: Eligio Rajan RN Scrub Person: Daniel Guillory Indications: Moises Cox is an 71 y.o. male who is having surgery for Left hydrocele [N43.3] Procedure Details: The patient was seen in the preoperative area. The risks, benefits, complications, treatment options, non-operative alternatives, expected recovery and outcomes were discussed with the patient. The possibilities of reaction to medication, pulmonary aspiration, injury to surrounding structures, bleeding, recurrent infection, the need for additional procedures, failure to diagnose a condition, and creating a complication requiring transfusion or operation were discussed with the patient. The patient concurred with the proposed plan, giving informed consent.?? The site of surgery was properly noted/marked if necessary per policy. The patient has been actively warmed in preoperative area. Preope rative antibiotics have been ordered and given within 1 hours of incision. Venous thrombosis prophylaxis have been ordered including bilateral sequential compression devices Findings: large left hydrocele Complications: None; patient tolerated the procedure well. Disposition: PACU - hemodynamically stable. Condition: stable Specimens:hydrocele sac was sent for Routine Pathology Implants: none The patient has a large left hydrocele. The risks of the procedure including bleeding infection postoperative pain and recurrent hydrocele were all reviewed with him. He received preoperative IV antibiotics. He is brought to the operating room and placed in the supine position. SCDs were placed. Part one of the timeout was completed. After adequate general endotracheal anesthetic, the scrotum wasprepped and draped in a sterile fashion. Part 2 of the timeout was then completed. A transverse incision was made along the anterior hemiscrotum about two thirds up from the base of the scrotum. After marking the incision, 0.5% plain Marcaine was infiltrated at the incision. Knife was then used to i ncise the skin and then dartos fascia. Hydrocele sac was then identified and opened with hemostats used to elevate the opening. The opening in the sac was extended laterally and medially and all the fluid was drained using suction. The sac was dissected free from the surrounding scrotal wall and a series of incisions were made from the opening of the sac down toward the base of the sac around thetesticle. There did not appear to be any loculations. A series of transversely placed hemostats at the base of the hemostat of the hydrocele sac were then placed and the excess sac was then excised. 3-0 chromic sutures were then used to secure the base of the hydrocele circumferentially around the t esticle and cord. In this way the sac was secured. Hemostasis was good. There is no evidence of anyinjury to the testicle or cord. Any bleeding areas were electrocoagulated. With good hemostasis the testicles were placed back in the scrotum. Harman-Sarah drain was placed at the base of the scrotum secured with a 2-0 silk suture. Dartos fascia closed with running 3- 0 chromic and skin edge reapproximated with interrupted vertical mattress sutures of 4-0 chromic. Wound was dressed with antibiotic ointment fluffs and then mesh panties. He was brought to the PACU in satisfactory condition. There were no complications. Daniel Blake MD * Preprocedure Instructions - Ro Price RN - 09/04/2022 1100 EST Moises Cox has been instructed as follows regarding medication administration for the day of the scheduled procedure. Date of Surgery: 10/10/22 Instructions for Taking Medications Day of Surgery Medication Dose and frequency Last Dose Hold Day of Surgery Take Day of Surgery atorvastatin (LIPITOR) 20 mg tablet Take 20 mg by mouth daily. YES documented in this encounter Plan of Treatment Not on file documented as of this encounter Procedures Procedure Name Priority Date/Time Associated Diagnosis Comments ECG REPORT - SCANNED 09/11/2022 7:53 EST SURGICAL PATHOLOGY Routine 09/09/2022 8: 11 EST HYDROCELECTOMY, UNILATERAL 09/09/2022 7:19 EST Left hydrocele Special Needs SF documented in this encounter Results * ECG REPORT - SCANNED (09/11/2022 7:53 EST) 09/11/2022 7:53 EST us Scan 2 Inclusion Special Education Teacher PROCEDURE/MINOR SURGICAL OR DERABLES Final Result * SURGICAL PATHOLOGY (09/09/2022 8:11 EST) Note to Patient The following pathology results have been interpreted by your pathologist and may be available to you before your health provider has had the opportunity to review them. Please allow time for your provider to receive these results and explore management options, if applicable. 09/10/2022 11:19 [facility] Final Diagnosis A. LEFT TESTICULAR HYDROCELE, EXCISION: - Fragments of fibromuscular cyst wall, consistent with hydrocele sac. 09/10/2022 11:19 [facility] Attestation By the signature below, the attending physician certifies that they have 1) personally conducted a gross and/or microscopic examination of the described specimen(s), and/or personally interpreted the results of laboratory testing of the described specimen(s), and 2) personally rendered or confirmed the above diagnosis. 09/10/2022 11:19 [facility] at 1119 Clinical History Pre-op diagnosis: Left hydrocele [N43.3] 09/10/2022 11:19 [facility] Gross Description A. Received in formalin labeled Moises Cox and left testicular hydrocele are 4 irregular chapman-pink, focally hemorrhagic fragments of fibromembranous soft tissue which range in size from 1.5 by 1.0 x 0.2 cm to 4.0 by 2.5 x 0.2 cm. Package Drier sections are submitted as A 1 and A2. Dee Hernández MD 09/09/2022 15:17 09/10/2022 11:19 [facility] Performing Lab [facility] 11:19 [facility] Scanned Images 09/10/2022 11:19 [facility] Tissue HYDROCELE / Unknown 09/09/2022 8:11 EST 09/09/2022 11:24 EST Comment:Pre-op diagnosis: Left hydrocele [N43.3] us Daniel Blake MD PATHOLOGY ORDERABLES Final Resul t [facility] [address] [place] [address] documented in this encounter Visit Diagnoses Diagnosis Left hydrocele Hydrocele, unspecified documented in this encounter Administered Medications Inactive Administered Medications - up to 3 most recent administrations Medication Order MAR Action Action Date Dose Rate Site acetaminophen (TYLENOL) tablet 975 mg 975 mg, oral, Once (Without Time Specified), Starting on Wed09/09/22 at 0855, Until Wed09/09/22 at 1420, Routine, Recovery (only) bacitracin zinc-polymyxin B 500-10,000 unit/gram ointment in packet PRN, Starting on Wed09/09/22 at 0818, Until Wed09/09/22 at 0853, Intraprocedure Given 09/09/2022 8:18 EST 3 mg Other bupivacaine HCl 0.5 % (5 mg/mL) injection PRN, Starting on Wed09/09/22 at 0815, Until Wed09/09/22 at 0853, Routine, Intraprocedure Given 09/09/2022 8:15 EST 5 mL Other diphenhydrAMINE (BENADRYL) injection 6.25 mg 6.25 mg, intravenous, ONCE PRN, 1 dose, Starting on Wed09/09/22 at 0855, Until Wed09/09/22 at 1420, Nausea/Vomiting, Routine, Recovery (only) fentaNYL citrate (PF) injection 25 mcg 25 mcg, intravenous, EVERY 5 MIN PRN, Starting on Wed09/09/22 at 0855, Until Wed09/09/22 at 1420, Pain, Moderate-Severe Pain (Scale 4-10), Routine, Recovery (only) Given 09/09/2022 9:40 EST 25 mcg HYDROmorphone (DILAUDID) tablet 2-4 mg 2-4 mg, oral, EVERY 30 MINUTES PRN, 2 doses, Starting on Wed09/09/22 at 0855, Until Wed09/09/22 at 1420, Pain, Routine, Recovery (only) HYDROmorphone (PF) (DILAUDID) 0.5 mg/0.5 mL syringe 0.5 mg 0.5 mg, intravenous, EVERY 5 MIN PRN, Starting on Wed09/09/22 at 0855, Until Wed09/09/22 at 1420, Pain, Moderate-Severe Pain (Scale 4-10), Routine, Recovery (only) labetalol (TRANDATE) injection 5 mg 5 mg, intravenous, EVERY 3 MINUTES PRN, Starting on Wed09/09/22 at 0855, Until Wed09/09/22 at 1420, High Blood Pressure, SBP greater than 180 mmHg, Routine, Recovery (only) lactated ringers (LR) infusion at 75 mL/hr, intravenous, CONTINUOUS, Starting on Wed09/09/22 at 0645, Until Wed09/09/22 at 1420, Routine, Preprocedure Continued by Anesthesia 09/09/2022 7:29 EST 75 mL/hr New Bag 09/09/2022 7:18 EST 75 mL/hr lactated ringers (LR) infusion at 100 mL/hr, 1,000 mL, intravenous, PACU CONTINUOUS, Starting on Wed09/09/22 at 0915, Until Wed09/09/22 at 1420, Routine, Recovery (only) New Bag 09/09/2022 9:14 EST 1,000 mL 100 mL/hr lactated ringers BOLUS 500 mL 500 mL, intravenous, ONCE PRN, 1 dose, Starting on Wed09/09/22 at 0855, Until Wed09/09/22 at 1420, Other, SBP below 100 or MAP below 60, Routine, Recovery (only) Phenylephrine 0.8 mg/10 ml vial 80 mcg 80 mcg, intravenous, EVERY 3 MINUTES PRN, Starting on Wed09/09/22 at 0855, Until Wed09/09/22 at 1420, Other, SBP below 100 mmHg or MAP below 60 mmHg, Routine, Recovery (only) documented in this encounter Historical Medications * This list may reflect changes made after this encounter. ibuprofen (MOTRIN) 400 mg tablet Take 400 mg by mouth 2 times daily. colchicine (COLCRYS) 0.6 mg tablet Take 0.6 mg by mouth daily. allopurinoL (ZYLOPRIM) 100 mg tablet Take 100 mg by mouth daily. added in this encounter Active and Recently Administered Medications Times are shown in EST. Scheduled Medication Order 09/07/2022 09/08/2022 09/09/2022 acetaminophen (TYLENOL) tablet 975 mg 975 mg, oral, Once (Without Time Specified), Starting on Wed09/09/22 at 0855, Until Wed09/09/22 at 1420, Routine, Recovery (only) ceFAZolin in dextrose 5 % (ANCEF) IVPB DUPLEX 2,000 mg (COMPLETED) 2,000 mg, intravenous, Administer over 30 Minutes, PRE-OP ONCE, 1 dose, On Wed09/09/22 at 0645, Type of Therapy: Prophylaxis, Suspected Indication (Select all that apply): Surgical prophylaxis, Routine, Preprocedure 0718 (Hold - Provide r: Annmarie Albarran RN - Reason: Other)0745 (Given - Provider: Gaby Roman MD) Continuous Medication Order 09/07/2022 09/08/2022 09/09/2022 lactated ringers (LR) infusion at 75 mL/hr, intravenous, CONTINUOUS, Starting on Wed09/09/22 at 0645, Until Wed09/09/22 at 1420, Routine, Preprocedure 0718 (New Bag - Prov ider: Annmarie Albarran RN)0729 (Continued by Anesthesia - Provider: Gaby Roman MD)0855 (Anesthesia Volume Adjustment - Provider: Gaby Roman MD) lactated ringers (LR) infusion at 100 mL/hr, 1,000 mL, intravenous, PACU CONTINUOUS, Starting on Wed09/09/22 at 0915, Until Wed09/09/22 at 1420, Routine, Recovery (only) 0914 (New Bag - Prov ider: Anny Colorado RN) PRN Medication Order 09/07/2022 09/08/2022 09/09/2022 bacitracin zinc-polymyxin B 500-10,000 unit/gram ointment in packet (CANCELED) PRN, Starting on Wed09/09/22 at 0818, Until Wed09/09/22 at 0853, Intraprocedure 0818 (Given - Provid er: Daniel Blake MD - Comment: applied topically) bupivacaine HCl 0.5 % (5 mg/mL) injection (CANCELED) PRN, Starting on Wed09/09/22 at 0815, Until Wed09/09/22 at 0853, Routine, Intraprocedure 0815 (Given - Provid er: Daniel Blake MD - Comment: scrotum/ testicle) diphenhydrAMINE (BENADRYL) injection 6.25 mg 6.25 mg, intravenous, ONCE PRN, 1 dose, Starting on Wed09/09/22 at 0855, Until Wed09/09/22 at 1420, Nausea/Vomiting, Routine, Recovery (only) fentaNYL citrate (PF) injection 25 mcg 25 mcg, intravenous, EVERY 5 MIN PRN, Starting on Wed09/09/22 at 0855, Until Wed09/09/22 at 1420, Pain, Moderate-Severe Pain (Scale 4-10), Routine, Recovery (only) 0940 (Given - Provid er: Anny Colorado RN) HYDROmorphone (DILAUDID) tablet 2-4 mg 2-4 mg, oral, EVERY 30 MINUTES PRN, 2 doses, Starting on Wed09/09/22 at 0855, Until Wed09/09/22 at 1420, Pain, Routine, Recovery (only) HYDROmorphone (PF) (DILAUDID) 0.5 mg/0.5 mL syringe 0.5 mg 0.5 mg, intravenous, EVERY 5 MIN PRN, Starting on Wed09/09/22 at 0855, Until Wed09/09/22 at 1420, Pain, Moderate-Severe Pain (Scale 4-10), Routine, Recovery (only) labetalol (TRANDATE) injection 5 mg 5 mg, intravenous, EVERY 3 MINUTES PRN, Starting on Wed09/09/22 at 0855, Until Wed09/09/22 at 1420, High Blood Pressure, SBP greater than 180 mmHg, Routine, Recovery (only) lactated ringers BOLUS 500 mL 500 mL, intravenous, ONCE PRN, 1 dose, Starting on Wed09/09/22 at 0855, Until Wed09/09/22 at 1420, Other, SBP below 100 or MAP below 60, Routine, Recovery (only) Phenylephrine 0.8 mg/10 ml vial 80 mcg 80 mcg, intravenous, EVERY 3 MINUTES PRN, Starting on Wed09/09/22 at 0855, Until Wed09/09/22 at 1420, Other, SBP below 100 mmHg or MAP below 60 mmHg, Routine, Recovery (only) documented in this encounter Orders Medications Ordered That Giovanny ht Not Have Been Administered Count Last Ordered Date First Ordered Date acetaminophen (TYLENOL) tablet 975 mg 1 ceFAZolin in dextrose 5 % (A NCEF) IVPB DUPLEX 2,000 mg 1 09/09/2022 diphenhydrAMINE (BENADRYL) i njection 6.25 mg 1 09/09/2022 HYDROmorphone (DILAUDID) tablet 2-4 mg 1 HYDROmorphone (PF) (DILAUDID ) 0.5 mg/0.5 mL syringe 0.5 mg 1 09/09/2022 labetalol (TRANDATE) injection 5 mg 1 09/09 lactated ringers BOLUS 500 mL 1 09/09/2022 lidocaine (PF) 10 mg/mL (1 % ) injection 2 mg 1 09/09/2022 Phenylephrine 0.8 mg/10 ml vial 80 mcg 1 Diet Count Last Ordered Date First Orde red Date DISCHARGE DIET 1 09/09/2022 Nursing Count Last Ordered Date First Orde red Date ACTIVITY INSTRUCTIONS 1 09/09/2022 Discharge Count Last Ordered Date First Orde red Date DISCHARGE PATIENT 1 09/09/2022 Legal Count Last Ordered Date First Orde red Date MISCELLANEOUS DISCHARGE INSTRUCTIONS 08/17 documented in this encounter Care Teams Concrete Panel Installer Relationship Specialty Start Date End Date Yoli Peters MD [address] [place] [id number] PCP - General 05/27/22 documented as of this encounter
--- OUTSIDE RECORDS SUMMARY | 2024-09-13 10:35 | XMS_ITS | Encounter Summary ---
Author Organization [facility] Address [address] [place] [address] Care Team Providers Care Elastic Yarn Twister Helper Name Role Phone Yoli Peters MD Primary Care Provide r Reason for Visit * Auth/Cert (Routine) Specialty Diagnoses / Procedures Referred By Maxim torres Referred To Contact Diagnoses Left hydrocele Left hydrocele [N43.3] Procedures MA REMOVAL OF HYDROCELE,TUNICA,UNILAT HYDROCELECTOMY, UNILATERAL Referral ID Status Reason Start Date Expiration Date Visits Re quested Visits Authorized [id number] 09/09/2022 12/08/2022 1 1 Encounter Details Date Type Department Care Team (Late st Contact Info) Description 09/09/2022 7:29 EST Anesthesia Event [facility] Operating Room [address] [place] [id number] Gaby Roman MD [address] [place] [address] [phone] Franchesca Carmichael MD [address] [place] [phone] Anesthesia Record Procedure Summary Procedure Name Responsible Anesthesiologist Anesthesia Start Time Anesthesia Stop Time HYDROCELECTOMY, UNILATERAL (Left) Gaby Roman MD 09/09/22 0729 09/09/22 0855 Events Date Time Event Comment 09/09/2022 0729 An Start The patient was re-evaluated immediately before moderate or deep sedation use, before anesthesia induction, or before the anesthesia procedure. 0729 An Start Data 0736 An Induction The patient was reevaluated immediately before moderate or deep sedation use and before anesthesia induction. 0741 An Intubation 0745 Anesthesia Ready 0849 An Extubation 0853 an stop data 0855 Handoff to RN I completed my handoff to the receiving nurse during which we: 1. Identified the patient 2. Identified the responsible provider 3. Reviewed the pertinent medical history 4. Discussed the surgical course 5. Reviewed intra-op anesthesia management and issues during anesthesia 6. Set expectations for post-procedure period 7. Allowed opportunity for questions and acknowledgement of understanding. 0855 An Stop Meds Name Total fentanyl citrate (PF) injection 50 mcg ketAMINE 10 mg/mL vial 20 mg midazolam (versed) 1 mg/mL 2 mL vial 2 m g ondansetron (PF) (ZOFRAN) injection 4 mg propOFol (DIPRIVAN) injection 210 mg rocuronium 10 mg/mL vial 50 mg sugammadex 100 mg/mL 2 mL vial 200 mg ePHEDrine vial 50 mg/mL 5 mg ceFAZolin in dextrose 5 % (ANCEF) IVPB D UPLEX 2,000 mg 2,000 mg dexaMETHasone 4 mg/mL injection 4 mg dexmedetomidine injection 8 mcg ketOROLAC injection 15 mg albuterol inhaler 8 Puff lactated ringers (LR) infusion 700 mL * Agents Name Insp Sevoflurane Exp Sevoflurane O2 N2O Air * Blood No blood administrations on file. Lines, Drains, and Airways Type Details Placement Removal Wound 09/09/22; 0752; Scrotum; Left testicular hydrocele 09/09/22 0752 by Eligio Rajan RN Closed/Suction Drain 09/09/22; 0823; In OR by MD; 1; (19fr evelia drain); Groin; 19 Frisian 09/09/22 0823 by Eligio Rajan RN Peripheral IV 09/09/22; 0717; 20; Posterior, Right; Hand; Inserted by RN; 2; None; Chlorhexidine; 09/09/22; 1115; Therapy completed; No complications, Catheter intact, Dressing applied 09/09/22 0717 by Annmarie Albarran RN 09/09/22 1115 by Meggan Faulkner RN Non-Surgical Airway 09/09/22; 0755 (lexii best via procedure documentation); 09/09/22; 0853 09/09/22 0755 by Gaby Roman MD 09/09/22 0853 by Gaby Roman MD documented in this encounter Social History Tobacco [...] 6:44 EST documented as of this encounter OR Notes * Anesthesia Postprocedure Evaluation - Gaby Roman MD - 09/09/2022 0906 EST Patient: Moises Cox Vital signs were reviewed with the recovery nurse. [facility] Vitals Value Taken Time BP 133/71 09/09/22 0905 Temp 36.8 ??C (98.3 ??F) 09/09/22 0858 Resp 21 09/09/22 0906 Pulse From Oximetry 74 BPM 09/09/22 0906 SpO2 91 % 09/09/22 0906 Heart Rate 74 BPM 09/09/22 0906 Vitals shown include unvalidated device data. Last Pain Score - Numeric Pain Level (Scale 1-10): 0 Type of Anesthesia - general Anesthesia Post Evaluation Post-procedure vitals reviewed and are stable. Level of consciousness: responsive/arousable to verbal stimuli Temperature status: normothermia Respiratory status: airway patent and nasal cannula Cardiovascular status: stable and within patient's normal range Hydration status: adequate Nausea/Vomiting: none Pain management: adequate Post-Op Assessment: patient tolerated procedure well with no complications Patient participation: able to participate Disposition: outpatient/home Anesthesia Complications: No apparent anesthesia complications * Anesthesia Preprocedure Evaluation - Gaby Roman MD - 09/09/2022 0757 EST Anesthesia Preprocedure Evaluation Patient Medical History, including Anesthesia History reviewed. Chart and Nursing Notes reviewed, including NPO status and Medication History. Additional ROS/History Findings: PMHx HTN, HLD, MARGARET (no CPAP) No current facility-administered medications on file prior to encounter. Current Outpatient Medications on File Prior to Encounter Medication Sig Dispense Refill ??? atorvastatin (LIPITOR) 20 mg tablet Take 20 mg by mouth daily. No current facility-administered medications for this encounter. Current Outpatient Medications Medication ??? atorvastatin (LIPITOR) 20 mg tablet No Known Allergies Past Medical History: Diagnosis Date ??? Hyperlipidemia Relevant Problems No relevant active problems History reviewed. No pertinent surgical history. Past Anesthetics [] No history of complications from anesthesia [x] No anesthesia records on file []No family history of allergic reactions to anesthesia Review of Systems Constitutional: Negative. Respiratory: Negative. Cardiovascular: Negative. Gastrointestinal: Negative for heartburn. Musculoskeletal: Positive for joint pain (gout). Endo/Heme/Allergies: Negative. Psychiatric/Behavioral: Negative. SOCIAL HISTORY: Social History Tobacco Use Smoking Status Former ??? Packs/day: 1.00 ??? Years: 15.00 ??? Pack years: 15.00 ??? Types: Cigarettes ??? Quit date: 08/12/2004 ??? Years since quittin.0 ??? Passive exposure: Never Smokeless Tobacco Never Social History Substance and Sexual Activity Drug Use Yes ??? Types: Marijuana Comment: 2 weekly mostly at night Social History Substance and Sexual Activity Alcohol Use Not Currently ??? Alcohol/week: 15.0 standard drinks ??? Types: 15 Cans of beer per week No results found for: GLUCOSEPOC No results found for: WBC, HGB, HCT, MCV, PLT No results found for: NA, K, KEXT, CL, CLEXT, CO2, CO2EXT No results found for: BUN No results found for: CREATININE, CREATININEEX No results found for: INR, PROTIME No results found for: PTT UPT: [] Patient declines test No results found for: PREGUR COVID: [] None on file No results found for: COVIDUV Blood Type: No results found for: ABO, LABRH, LABANTI, SPECEXP EKG: [x] N/A ECHO: [] N/A Cardiac Stress: [] N/A Ht 180.3 cm (71) Wt (!) 108.9 kg (240 lb) BMI 33.47 kg/m?? Pulse From Oximetry: -- Physical Exam Airway Mallampati: III TM distance: >3 FB Neck ROM: full Comments: Full davis Cardiovascular - normal exam Dental Comments: Some missing teeth Pulmonary - normal exam Abdominal (+) obese Anesthesia Plan ASA 2 Anesthesia Type - general, to include intravenous induction. Anesthesia plan and risks discussed. Informed consent obtained from patient. Specific risks discussed were vomiting, nausea, dental injury, myocardial infarction and stroke. The preoperative history and physical which was performed within 30 days of this procedure, has been reviewed and the clinically appropriate elements of the physical examination have been repeated. There are no changes to the documented history and physical or, if so, such changes are documented inthis note PAT Note Notes from 08/08/22 through 09/07/22 No notes of this type exist for this encounter. * Anesthesia Procedure Notes - Gaby Roman MD - 09/09/2022 0754 EST Associated Order(s): Airway Airway Date/Time: 09/09/2022 7:41 Urgency: elective Airway not difficult General Information and Staff Patient location during procedure: OR Anesthesiologist: Gaby Roman MD Performed: anesthesiologist Indications and Patient Condition Indications for airway management: anesthesia Sedation level: GA Preoxygenated: yes Patient position: sniffing Ventilation assessment: 5 - Two providers required (with oral airway; significant leak with davis with one handed masking) Final Airway Details Final airway type: endotracheal airway Successful airway: ETT Cuffed: yes Successful intubation technique: video laryngoscopy Hughes Facilitating devices/methods: intubating stylet Endotracheal tube insertion site: oral Blade: Uli Blade size: #4 ETT size (mm): 7.5 Cormack-Lehane Classification: grade IIa - partial view of glottis Placement verified by: capnometry and palpation of cuff Cuff volume (mL): 8 Measured from: teeth Number of attempts at approach: 1 documented in this encounter Plan of Treatment Not on file documented as of this encounter Procedures Procedure Name Priority Date/Time Associated Diagnosis Comments ANESTHESIA INTUBATION Routine 09/09/2022 7:41 EST documented in this encounter Results * MA AN ELECTIVE ENDOTRACHEAL AIRWAY (09/09/2022 7:41 EST) Narrative [facility] POINT [facility] CARE - 09/09/2022 7:41 EST Gaby Roman MD ? 09/09/2022 ??7:55 Airway Date/Time: 09/09/2022 7:41 Urgency: elective Airway not difficult General Information and Staff Patient location during procedure: OR Anesthesiologist: Gaby Roman MD Performed: anesthesiologist Indications and Patient Condition Indications for airway management: anesthesia Sedation level: GA Preoxygenated: yes Patient position: sniffing Ventilation assessment: 5 - Two providers required (with oral airway; significant leak with davis with one handed masking) Final Airway Details Final airway type: endotracheal airway Successful airway: ETT Cuffed: yes Successful intubation technique: video laryngoscopy Hughes Facilitating devices/methods: intubating stylet Endotracheal tube insertion site: oral Blade: Uli Blade size: #4 ETT size (mm): 7.5 Cormack-Lehane Classification: grade IIa - partial view of glottis Placement verified by: capnometry and palpation of cuff Cuff volume (mL): 8 Measured from: teeth Number of attempts at approach: 1 us Gaby Roman MD ANESTHESIA ORDERABLES Final Re sult [facility] documented in this encounter Visit Diagnoses Not on filedocumented in this encounter Administered Medications Inactive Administered Medications - up to 3 most recent administrations Medication Order MAR Action Action Date Dose Rate Site albuterol inhaler inhalation, PRN, Starting on Wed09/09/22 at 0832, Until Wed09/09/22 at 0906, Routine, Anesthesia Intraprocedure Given 09/09/2022 8:32 EST 8 Puffs ceFAZolin in dextrose 5 % (ANCEF) IVPB DUPLEX 2,000 mg 2,000 mg, intravenous, Administer over 30 Minutes, PRE-OP ONCE, 1 dose, On Wed09/09/22 at 0645, Type of Therapy: Prophylaxis, Suspected Indication (Select all that apply): Surgical prophylaxis, Routine, Preprocedure Given 09/09/2022 7:45 EST 2,000 mg dexAMETHasone (DECADRON) injection intravenous, PRN, Starting on Wed09/09/22 at 0745, Until Wed09/09/22 at 0906, Routine, Anesthesia Intraprocedure Given 09/09/2022 7:45 EST 4 mg dexmedeTOMIDine (PRECEDEX) injection intravenous, PRN, Starting on Wed09/09/22 at 0745, Until Wed09/09/22 at 0906, Routine, Anesthesia Intraprocedure Given 09/09/2022 7:45 EST 8 mcg ePHEDrine injection intravenous, PRN, Starting on Wed09/09/22 at 0752, Until Wed09/09/22 at 0906, Routine, Anesthesia Intraprocedure Given 09/09/2022 7:52 EST 5 mg fentaNYL citrate (PF) injection intravenous, PRN, Starting on Wed09/09/22 at 0738, Until Wed09/09/22 at 0906, Routine, Anesthesia Intraprocedure Given 09/09/2022 7:38 EST 50 mcg ketAMINE (KETALAR) IV injection vial intravenous, PRN, Starting on Wed09/09/22 at 0736, Until Wed09/09/22 at 0906, Routine, Anesthesia Intraprocedure Given 09/09/2022 7:36 EST 20 mg ketOROLAC (TORADOL) injection intravenous, PRN, Starting on Wed09/09/22 at 0825, Until Wed09/09/22 at 0906, Routine, Anesthesia Intraprocedure Given 09/09/2022 8:25 EST 15 mg lactated ringers (LR) infusion at 75 mL/hr, intravenous, CONTINUOUS, Starting on Wed09/09/22 at 0645, Until Wed09/09/22 at 1420, Routine, Preprocedure Continued by Anesthesia 09/09/2022 7:29 EST 75 mL/hr New Bag 09/09/2022 7:18 EST 75 mL/hr midazolam (PF) (VERSED) injection intravenous, PRN, Starting on Wed09/09/22 at 0735, Until Wed09/09/22 at 0906, Routine, Anesthesia Intraprocedure Given 09/09/2022 7:35 EST 2 mg ondansetron (PF) (ZOFRAN) injection intravenous, PRN, Starting on Wed09/09/22 at 0825, Until Wed09/09/22 at 0906, Routine, Anesthesia Intraprocedure Given 09/09/2022 8:25 EST 4 mg propOFol (DIPRIVAN) injection intravenous, PRN, Starting on Wed09/09/22 at 0739, Until Wed09/09/22 at 0906, Routine, Anesthesia Intraprocedure Given 09/09/2022 8:33 EST 30 mg Given 09/09/2022 8:18 EST 30 mg Given 09/09/2022 7:39 EST 150 mg rocuronium (ZEMURON) injection intravenous, PRN, Starting on Wed09/09/22 at 0739, Until Wed09/09/22 at 0906, Routine, Anesthesia Intraprocedure Given 09/09/2022 7:39 EST 50 mg sugammadex (BRIDION) injection intravenous, PRN, Starting on Wed09/09/22 at 0845, Until Wed09/09/22 at 0906, Routine, Anesthesia Intraprocedure Given 09/09/2022 8:45 EST 200 mg documented in this encounter Care Teams Elastic Yarn Twister Helper Relationship Specialty Start Date End Date Yoli Peters MD [address] [place] [id number] PCP - General 05/27/22 documented as of this encounter
--- OUTSIDE RECORDS SUMMARY | 2024-09-13 10:35 | XMS_ITS | Encounter Summary ---
Author Organization [facility] Address [address] [place] [address] Care Team Providers Care Lap Welder Name Role Phone Yoli Peters MD Primary Care Provide r Reason for Visit * Auth/Cert (Routine) Specialty Diagnoses / Procedures Referred By Maxim torres Referred To Contact Diagnoses Left hydrocele Left hydrocele [N43.3] Procedures [place] REMOVAL OF HYDROCELE,TUNICA,UNILAT HYDROCELECTOMY, UNILATERAL Referral ID Status Reason Start Date Expiration Date Visits Re quested Visits Authorized [id number] 09/09/2022 12/08/2022 1 1 Encounter Details Date Type Department Care Team (Latest Contact Info) Description 09/09/2022 6:14 EST - 09/09/2022 11:35 EST Hospital Encounter [facility] Operating Room [address] [place] [address] Daniel Blake MD [address] [facility] [address] [place] [address] Discharge Disposition: Home or Self Care Social History Tobacco Use Types Packs/Day Years [...] ibuprofen as needed for pain. Call office [phone] for any concerns. documented in this encounter [...] Code Departure Means Destination Home or Self Prison documented in this encounter H&P Notes * Daniel Blake MD - 09/09/2022 0710 EST Hydrocele in adult Dx New Patient Visit Reason for Visit Progress Notes Daniel Blake MD (Physician) ? Urology Chief Complaint: Chief Complaint Patient presents with ??? New Patient Visit ? Reason for Consult: Urology was asked to see Moises at the request of Yoli Peters for evaluation of hydrocele. ?? HPI: Moises is a 71 y.o. male with recent sono at [facility]: large left hydrocele. Has pain [...] distress. Respiratory: Respirations unlabored. CTAB Cardiovascular: Pulse [id number] without murmur Gastrointestinal: Abdomen soft, non tende [...] UNILATERAL (L) Operative Note Date: 09/09/2022 [facility]: [facility] [place] Name: Moises Cox, : 1950, Diagnosis [...] Posterior;Right Hand (Active) Closed/Suction Drain Groin 19 Korean (Active) Wound 09/09/22 Scrotum (Active) [REMOVED] Non-Surgical Airway (Removed) Staff: Cut Order Hand: Eligio Rajan RN Scrub Person: Daniel Guillory [...] EST) 09/11/2022 7:53 EST us Scan 2 [employer] PROCEDURE/MINOR SURGICAL OR DERABLES Final Result * SURGICAL PATHOLOGY (09/09/2022 8:11 EST) Note to Patient The following pathology results have been interpreted by your pathologist and may be available to you before your health provider has had the opportunity to review them. Please allow time for your provider to receive these results and explore management options, if applicable. 09/10/2022 11:19 [facility] Final Diagnosis A. LEFT TESTICULAR HYDROCELE, EXCISION: - Fragments of fibromuscular cyst wall, consistent with hydrocele sac. 09/10/2022 11:19 [facility] Attestation By the signature below, the attending physician certifies that they have 1) personally conducted a gross and/or microscopic examination of the described specimen(s), and/or personally interpreted the results of laboratory testing of the described specimen(s), and 2) personally rendered or confirmed the above diagnosis. 09/10/2022 11:19 [facility] at 1119 Clinical History Pre-op diagnosis: Left hydrocele [N43.3] 09/10/2022 11:19 [facility] Gross Description A. Received in formalin labeled Moises Cox and left testicular hydrocele are 4 irregular chapman-pink, focally hemorrhagic fragments of fibromembranous soft tissue which range in size from 1.5 by 1.0 x 0.2 cm to 4.0 by 2.5 x 0.2 cm. Election Assistant sections are submitted as A 1 and A2. Dee Hernández MD 09/09/2022 15:17 09/10/2022 11:19 [facility] Performing Lab [facility] 11:19 [facility] Scanned Images 09/10/2022 11:19 [facility] Tissue HYDROCELE / Unknown 09/09/2022 8:11 EST 09/09/2022 11:24 EST Comment:Pre-op diagnosis: Left hydrocele [N43.3] us Daniel Blake MD PATHOLOGY ORDERABLES Final Resul t [facility] [address] [place] [address] documented in this encounter Visit Diagnoses Not on filedocumented in this encounter Administered Medications Inactive Administered Medications - up to 3 most recent administrations Medication Order MAR Action Action Date Dose Rate Site acetaminophen (TYLENOL) tablet 975 mg 975 mg, oral, Once (Without Time Specified), Starting on Wed09/09/22 at 0855, Until Wed09/09/22 at 1420, Routine, Recovery (only) diphenhydrAMINE (BENADRYL) injection 6.25 mg 6.25 mg, [...] 0914 (New Bag - Prov ider: Anny Colorado, JEANNA) PRN Medication Order 09/07/2022 09/08/2022 09/09/2022 bacitracin [...] Ordered Date acetaminophen (TYLENOL) tablet 975 mg bacitracin zinc-polymyxin B 500-10,000 unit/gram ointment in packet 09/09/2022 bupivacaine HCl 0.5 % (5 mg/mL) injection 09/09/2022 ceFAZolin in dextrose 5 % (A NCEF) IVPB DUPLEX 2,000 mg 09/09/2022 diphenhydrAMINE (BENADRYL) i njection 6.25 mg 09/09/2022 HYDROmorphone (DILAUDID) tablet 2-4 mg HYDROmorphone (PF) (DILAUDID ) 0.5 mg/0.5 mL syringe 0.5 mg 09/09/2022 labetalol (TRANDATE) injection 5 mg 09/09 lactated ringers BOLUS 500 mL 1 [...] 08/17 documented in this encounter Care Teams Lap Welder Relationship Specialty Start Date End Date Yoli Peters MD [address] [address] PCP - General 05/27/22 documented as of this encounter
--- OUTSIDE RECORDS SUMMARY | 2024-09-13 10:35 | XMS_ITS | Encounter Summary ---
Author Organization [facility] Address [address] [place] [address] Care Team Providers Care Surgical Device Sales Representative Name Role Phone Yoli Peters MD Primary Care Provide r Encounter Details Date Type Department Care Team (Latest Contact Info) Description 09/04/2022 Travel Social History Tobacco Use Types Packs/Day [...] suspected to have Coronavirus/COVID-19? No / Unsure 09/04/2022 10:48 EST documented as of this encounter Plan of Treatment Not on file documented as of this encounter Visit Diagnoses Not on filedocumented in this encounter Care Teams Surgical Device Sales Representative Relationship Specialty Start Date End Date Yoli Peters MD [address] [place] [address] [address] [place] [address] PCP - General 05/27/22 documented as of this encounter
--- OUTSIDE RECORDS SUMMARY | 2024-09-13 10:35 | XMS_ITS | Encounter Summary ---
Author Organization [facility] Address [address] [place] [address] Care Team Providers Care Medical Liaison Name Role Phone Yoli Peters MD Primary Care Provide r Encounter Details Date Type Department Care Team (Late st Contact Info) Description 09/09/[address] [facility] [address] [place] [address] Daniel Blake MD [address] [facility] [address] [place] [phone] Social History Tobacco Use Types Packs/Day Years [...] 6:44 EST documented as of this encounter Ordered Prescriptions Prescription Sig Dispense Quantity Refills Last Filled Start Date End Date oxyCODONE (ROXICODONE) 5 mg immediate release tablet Take 1 Tablet by mouth every 6 hours as needed for up to 8 doses for Pain (post op surgery). Daily Max: 20 mg 8 Tablet 09/09/2022 documented in this encounter Plan of Treatment Not on file documented as of this encounter Visit Diagnoses Not on filedocumented in this encounter Care Teams Medical Liaison Relationship Specialty Start Date End Date Yoli Peters MD [address] [address] PCP - General 05/27/22 documented as of this encounter
--- OUTSIDE RECORDS SUMMARY | 2024-09-13 10:35 | XMS_ITS | Continuity of Care Document ---
Author Organization [facility] Address [address] [place] [address] Care Team Providers Care District Director Name Role Phone Unavailable, Physician Primary Care Physician Un available Encounter [facility] Date(s): 05/01/24 - 05/01/24 [facility] [address] [place] [address] Discharge Disposition: Home Medications lisinopril 10 mg oral tablet 10 mg = 1 tab, Oral, Daily, # 30 tab, 0 Refill(s) Start Date: 07/21/22 Status: Ordered Metoprolol Succinate ER 25 mg oral tablet, extended release See Instructions, TAKE 1 AND 1/2 TABLETS BY MOUTH DAILY, # 45 tab, 0 Refill(s), Pharmacy: [facility] #[id number], 179.07, cm, 08/03/22 9:56:00 EST, Height Start Date: 05/01/24 Status: Ordered Voltaren 1% topical gel 1 [...] Never tobacco user T obacco Use:. Sex Sex Representation Male (finding) Patient Care team information Care Team Personnel Name: Unavailable, Physician Position: No Access Member Role: Primary Care Physician Insurance Providers Guarantor name: NI Health Plan Information #: 1 Payer: [employer] REPLACEMENTADVANTAGE PPO Member Number: NA Policy Number: NA Health Plan Information #: 2 Payer: [employer] Member Number: NA Policy Number: NA
[2024-09-13 15:09] LABS: HCT 43.6 % (40.0-50.0); HGB 14.9 g/dL (13.5-17.5); MCH 31.7 pg (27.0-33.0); MCHC 34.2 % (32.0-36.0); MCV 93 fL (80-95); MPV 10.4 fL (8.0-11.0); Platelet Count 260 10^3/uL (130-400); RDW 13.7 % (11.8-14.1); RDW-SD 46.5 fL; WBC 13.71 10^3/uL (4.4-10.8)
[2024-09-13 15:53] LABS: ALT 34 U/L (16-63); AST 22 U/L (15-37); Albumin 4.2 g/dL (3.4-5.0); Alkaline Phosphatase 101 U/L (46-116); Anion Gap 10.1 mmol/L (3-11); BUN 13 mg/dL (7-18); CO2 27.9 mmol/L (21.0-32.0); CREATININE 1.2 mg/dL (0.70-1.30); Calcium 10.2 mg/dL (8.5-10.1); Calculated LDL 52 mg/dL (<100); Chloride 104 mmol/L (98-107); Cholesterol 166 mg/dL (<200); Estimated GFR 63.46 (mL/min/1.73m2); Glucose 117 mg/dL (74-106); HDL Cholesterol 73 mg/dL (40-60); Potassium 4.4 mmol/L (3.5-5.1); Sodium 142 mmol/L (136-145); Total Protein 7.4 g/dL (6.4-8.2); Triglyceride 208 mg/dL (<150)
[2024-09-13 16:25] LABS: Hemoglobin A1C 5.8 % (<5.7)
[2024-09-13 16:30] LABS: Uric Acid 4.8 mg/dL (3.5-7.2)
== END 2024-09-13 10:29 | disposition home or self-care (01) ==
LOC: NCHCN 10:28
PROVIDERS: PCP Internal Medicine; Visit Provider Internal Medicine
DX: K76.0 Fatty (change of) liver, not elsewhere classified (principal)
CPT/HCPCS: 80053; 80061; 85027; 83036; 84550

== ENCOUNTER 2025-03-19 18:51 | Outpatient (REF) | payer MEDICARE, MEDICAID, SELFPAY ==
[2025-03-19 16:07] LABS: Anion Gap 8.1 mmol/L (3-11); BUN 17 mg/dL (7-18); CO2 27.9 mmol/L (21.0-32.0); Calcium 9.5 mg/dL (8.5-10.1); Chloride 104 mmol/L (98-107); Estimated GFR 78.49 (mL/min/1.73m2); Glucose 123 mg/dL (74-106); Potassium 4.0 mmol/L (3.5-5.1); Sodium 140 mmol/L (136-145)
[2025-03-19 16:19] LABS: Hemoglobin A1C 5.3 % (<5.7)
== END 2025-03-19 18:52 | disposition home or self-care (01) ==
LOC: NCHCN 18:51
PROVIDERS: PCP Internal Medicine; Visit Provider Internal Medicine
DX: E11.9 Type 2 diabetes mellitus without complications (principal)
CPT/HCPCS: 80048; 83036